=== PATIENT | female | born 1950 | race Caucasian/White ===

== ENCOUNTER 2020-10-11 11:14 | Emergency (ER) | payer MEDICARE, OTHER, SELFPAY ==
--- NOTE | ~2020-10-11 | CT_ITS ---
EXAMINATION: CT HEAD WITHOUT CONTRAST CLINICAL INFORMATION: Fall. On Coumadin. COMPARISON: CT brain 04/08/2018 TECHNIQUE: Contiguous axial imaging was performed from the skull base to vertex without intravenous administration of contrast. This CT examination was performed using dose optimization techniques as appropriate, variously including the following: *Automated exposure control *Adjustment of mA and/or kV according to patient size (this includes techniques or standardized protocols for targeted exams where dose is matched to indication/reason for exam; i.e. extremities or head) *Use of iterative reconstruction technique DLP: 678 mGy-cm FINDINGS: There is no evidence of acute intracranial hemorrhage or territorial infarction. No abnormal mass effect or midline shift is seen. Rizzo to white matter differentiation is well preserved. No extra-axial fluid collections are identified. The lateral ventricles are symmetrical but minimally prominent. There is mild prominence of cortical sulci. There is diffuse periventricular hypodensity suggestive of chronic small vessel ischemic changes. There is a prominent subarachnoid space in the right CP angle likely arachnoid cyst. It is similar to previous study. The osseous structures and soft tissues are normal. The mastoid air cells and visualized portions of the paranasal sinuses are well aerated. CT/CT head/brain wo con IMPRESSION: No acute intracranial intracranial process seen. Right anterior temporal lobe arachnoid cyst, stable.
--- NOTE | ~2020-10-11 | XR_ITS ---
EXAMINATION: XR LUMBOSACRAL SPINE CLINICAL INFORMATION: Fall COMPARISON: February 24, 2018 TECHNIQUE: Three views of the lumbosacral spine. FINDINGS: There are 5 nonrib bearing lumbar vertebra. No acute fracture, spondylolisthesis, spondylolysis identified. There appears be osteopenia of visualized bones. There is narrowing of the L5-S1 disc space as well as facet arthropathy at the L5-S1 level. IVC filter seen in place. Patient status post bilateral total hip arthroplasty. Suture line seen within the left upper quadrant. XR/XR lumbar spine 2-3V IMPRESSION: No acute fracture, spondylolisthesis, spondylolysis. L5-S1 degenerative change as described.
[2020-10-11 11:28] VITALS: BP 166/95; PULSE 78; RESP 16; TEMP 36.4; O2SAT 98; BMI 28.7
--- NOTE | 2020-10-11 11:44 | PC.NURSE ---
PT SITTING UPRIGHT IN BED, RR EVEN UNLABORED, SKIN WPD, AOX4. PT REPORTS HAVING MECHANICAL TRIP AND FALL YESTERDAY EVENING, PT REPORTS HAS BAD LEG S/P HIP REPLACEMENT, STEPPED IN ODD WAY ON LEG TRIPPED AND FELL BACKWARDS LANDING ON BUTTOCKS, THEN BACK OF HEAD STRUCK GROUND, NO LOC, PT ABLE TO GET SELF BACK UP RIGHT AWAY. PT REPORTS VERY MILD TENDERNESS TO BACK OF HEAD TODAY, STS HAS HAD SINUS HEADACHE SINCE YESTERDAY, UNKNOWN IF RELATED TO FALL OR NOT. PT REPORTS TAKES COUMADIN FOR PREVIOUS BLOOD CLOTS SO CAME TO ED WHEN TOLD TO D/T HEAD STRIKE. PT AWAITING PRIMARY PROVIDER EVAL.
--- NOTE | 2020-10-11 11:45 | ED.FALL ---
HPI - Fall General Chief Complaint: Fall Stated Complaint: FALL Time Seen by Provider: 10/11/20 11:44 History of Present Illness HPI Narrative: Patient tripped and fell yesterday and complains of a headache and back pain ,she has chronic pain and stiffness in her right leg since breaking her hip some months ago and uses a cane, She did not faint there was no preceding dizziness she had no loss of consciousness, she now has a mild headache and pain in her lower back, no numbness weakness or tingling, no changes to bowel or bladder Related Data Previous Rx's Medication Instructions Recorded cyclobenzaprine 5 mg PO TID PRN #10 tab 10/11/20 lidocaine 1 patch TOPICAL DAILY PRN #15 ea 10/11/20 Allergies Allergy/AdvReac Type Severity Reaction Status Date / Time aspirin [Aspirin] Allergy Unknown NOT Verified 10/11/20 11:28 APPLICABLE ibuprofen [From Motrin] Allergy Unknown NOT Verified 10/11/20 11:28 APPLICABLE Review of Systems Review of Systems: Positive for back pain and headache negatives are no dizziness no weakness no fainting no feeling faint no loss of consciousness no nausea or vomiting no vision changes no neck pain no numbness weakness or tingling no chest pain no shortness of breath no abdominal pain no lacerations no numbness or weakness PMFSH Past Medical History Source: nursing notes reviewed Medical History (Updated 10/12/20 @ 00:01 by Kamala Song) Pulmonary embolism Stomach ulcer Social History Social History Alcohol intake: never Smoking Status: Never smoker Use of substances other than those prescribed or required for medical reasons: No Advance Directives: No Advance Directives Information Provided: No Physical Exam Vital Signs: Vital Signs: Last Vital Signs Temp 98.4 F 10/11/20 13:18 Pulse 71 10/11/20 13:18 Resp 18 10/11/20 13:18 BP 149/82 H 10/11/20 13:18 Pulse Ox 97 10/11/20 13:18 Body Mass Index 28.7 General appearance is no acute distress, cooperative come and O x3 There is no hematoma or defect palpated in the scalp there is no Pinto sign there is no raccoon eyes there is no hemotympanum the pupils equal round reactive to light, extraocular motions are intact Neck is supple and nontender Chest is clear to auscultation symmetric equal breath sounds, no tenderness to ribs or chest wall Abdomen soft nontender There is tenderness and difficulty with movement in the right hip and leg which is pre-existing since a hip surgery some months ago, other extremities are normal Skin no lacerations Neuro motor is 5 5 x 4, sensation intact symmetrical there is no facial asymmetry, cerebellar exam is normal, cranial nerves 2-12 intact as tested, verbal comprehension and speaking are all normal Course Course Course Narrative: Back x-ray showed some arthritis no acute fracture and head CT showed a stable right temporal lobe arachnoid cyst but no acute bleed or fracture no acute findings Patient is discharged home to follow with primary doctor as needed MDM - Fall Lab Data Labs: Lab Results 10/11/20 Range/Units 12:17 PT 30.1 H (10.8-13.0) SEC INR 2.5 H (0.9-1.1) Discharge Plan Discharge Clinical Impression: Contusion of scalp, Back pain Patient Disposition: Home, Self-Care Additional Instructions: CT scan of head did not reveal any bleed or fracture INR was 2.5 X-ray of her back showed some arthritic changes but no broken bone For the back pain I added a muscle relaxer and a lidocaine patch Follow with primary doctor as physical therapy is sometimes helpful For headache pain you can use Tylenol Return any time any worse condition or any concerns Prescriptions: New cyclobenzaprine 5 mg tablet 5 mg PO TID PRN (Reason: muscle spasm) Qty: 10 RF: 0 lidocaine 5 % adhesive patch,medicated 1 patch topical DAILY PRN (Reason: back pain) Qty: 15 RF: 0 Interventions: ED Discharge Assessment Last Done: 10/11/20 13:58 Discharge Date/Time: 10/11/20 13:59
[2020-10-11 12:29] LABS: INTERNATIONAL NORM RATIO 2.5 (0.9-1.1); Prothrombin Time 30.1 SEC (10.8-13.0)
[2020-10-11 13:18] VITALS: BP 149/82; PULSE 71; RESP 18; TEMP 36.9; O2SAT 97
== END 2020-10-11 13:59 | disposition home or self-care (01) ==
PROVIDERS: Physician Assistant Medical; Emergency Provider Emergency Medicine; PCP Internal Medicine
DX: S00.03XA Contusion of scalp, initial encounter (principal); M54.5 Low back pain; M79.604 Pain in right leg; X58.XXXA Exposure to other specified factors, initial encounter; Y93.9 Activity, unspecified; Y92.9 Unspecified place or not applicable; Y99.9 Unspecified external cause status; Z79.899 Other long term (current) drug therapy
CPT/HCPCS: 36415; 70450; 72100; 85610; 99284

== ENCOUNTER 2021-06-19 11:28 | Emergency (ER) | payer MEDICARE, OTHER, SELFPAY ==
--- NOTE | ~2021-06-19 | XR_ITS ---
EXAMINATION: XR KNEE, RIGHT CLINICAL INFORMATION: Pain and swelling COMPARISON: Radiographs right knee 04/02/2009 TECHNIQUE: Four views of the right knee. FINDINGS: There is no fracture, dislocation, or destructive process. No visible suprapatellar effusion. Lateral view slightly obliqued and small effusion may not be appreciated. Hoffa's fat pad appears normal. There is no focal joint narrowing or erosive change or chondrocalcinosis. XR/XR knee RT 4V IMPRESSION: Unremarkable exam.
--- NOTE | ~2021-06-19 | US_ITS ---
EXAMINATION: US VENOUS ULTRASOUND WITH DOPPLER LOWER EXTREMITY, RIGHT CLINICAL INFORMATION: History DVT contralateral left lower extremity, 2009. Patient on anticoagulant. Pain lower extremity. Assess for occult DVT. COMPARISON: Bilateral leg venous ultrasound 01/08/2010 TECHNIQUE: Ultrasound of the deep veins is performed from the hip to the calf with compression sonography and color and pulse Doppler assessment. Spectral analysis with color-flow imaging is performed. FINDINGS: There is normal venous compression. The visualized common femoral vein, superficial femoral vein, profunda femoral vein, and the trifurcation region shows no evidence of deep venous thrombosis. There is echogenicity due to slow flow in the region of the popliteal vein due to Rouleaux formation as noted on cine loop. The popliteal vein is freely compressible without intraluminal clot. If the patient's symptoms persist, followup ultrasound in 5 days 7 days might be of value to exclude proximal propagation from a non-visualized calf vein. US/US venous duplex LE RT IMPRESSION: No DVT demonstrated in the right lower extremity.
[2021-06-19 12:13] VITALS: BP 164/76; PULSE 64; RESP 18; TEMP 35.8; O2SAT 97; BMI 29.0
--- NOTE | 2021-06-19 13:17 | ED.EXTPRO ---
HPI - Extremity Problem General Chief complaint: Extremity Problem Stated complaint: rt knee pain/swelling Time Seen by Provider: 06/19/21 12:01 Source: patient Mode of arrival: wheelchair Limitations: no limitations History of Present Illness HPI Narrative: 70-year-old female with a history of DVTs on Coumadin, arthritis here with complaints of right knee pain and swelling for 5 days. no known injury or trauma. no fevers, chills, redness or warmth. this morning she felt some numbness and tingling in her lower calf and became concerned that she might have a blood clot so brought herself in Related Data Previous Rx's Medication Instructions Recorded cyclobenzaprine 5 mg tablet 5 mg PO TID PRN #10 tab 10/11/20 lidocaine 5 % topical patch 1 patch TOPICAL DAILY PRN #15 ea 10/11/20 oxycodone-acetaminophen 5 mg-325 1 tab PO Q6H PRN #8 tab 06/19/21 mg tablet (Percocet) Allergies Allergy/AdvReac Type Severity Reaction Status Date / Time aspirin [Aspirin] Allergy Unknown NOT Verified 06/19/21 12:13 APPLICABLE ibuprofen [From Motrin] Allergy Unknown NOT Verified 06/19/21 12:13 APPLICABLE tramadol Allergy Seizure Verified 06/19/21 12:13 Review of Systems Review of Systems: Yes all other systems are reviewed and are negative Constitutional: Constitutional: Reports no additional constitutional complaints, Denies body ache(s), Denies chills, Denies fever(s), Denies headache(s) and Denies weakness Eyes: Eyes: Reports no additional eye complaints and Denies change in vision ENT: Reports system reviewed and no additional complaints, except as documented, Denies dizziness, Denies headache(s), Denies nasal congestion, Denies nasal discharge and Denies neck pain Cardiovascular: Cardiovascular: Reports no additional cardiovascular complaints, Denies chest pain, Denies leg edema and Denies dyspnea Respiratory: Respiratory: Reports no additional respiratory complaints, Denies cough and Denies dyspnea Gastrointestinal: Gastrointestinal: Reports no additional gastrointestinal complaints, Denies abdominal pain, Denies diarrhea, Denies nausea and Denies vomiting Genitourinary: Genitourinary: Reports no additional female genitourinary complaints and Denies urinary incontinence Musculoskeletal: Musculoskeletal: Reports no additional musculoskeletal complaints, Denies back pain, Reports arthralgias, Reports joint swelling, Denies neck pain, Denies numbness and Denies tingling Integumentary/Breasts: Skin/Breast: Reports system reviewed and no additional complaints, except as docu and Denies rash Neurologic: Reports system reviewed and no additional complaints, except as documented, Denies Abnormal speech present, Denies dizziness, Denies headache(s), Denies numbness, Denies tingling and Denies weakness PMFSH Past Medical History Attestation statement: The following information was validated with the patient. Source: old records reviewed and nursing notes reviewed Medical History Pulmonary embolism Stomach ulcer Social History Social History Alcohol intake: never Advance Directives: No Physical Exam Vital Signs: Vital Signs: Last Vital Signs Temp 96.4 F L 06/19/21 12:13 Pulse 64 06/19/21 12:13 Resp 18 06/19/21 12:13 BP 164/76 H 06/19/21 12:13 Pulse Ox 97 06/19/21 12:13 Body Mass Index 29.0 Const: General: cooperative, healthy appearing, comfortable and no acute distress Orientation/consciousness: patient oriented x3 Limitations: no limitations HENMT: Head: Yes normal to inspection Ears: hearing grossly normal bilaterally General nose exam: Normal external nose present Face and sinus: Yes normal facial exam Mouth: Normal oral and palatal mucosa present Throat: Yes posterior oropharynx normal Eyes: General: appearance normal, both eyes and all related structures Pupils: Equal, round and reactive pupils present Neck: Neck: Yes normal visual inspection Chest: Chest palpation & inspection: normal inspection of the chest Resp: Effort & Inspection: normal respiratory effort Auscultation: clear to auscultation bilaterally Cardio: Rate: regular rate Rhythm: regular rhythm Peripheral pulses: Peripheral pulses 2+ throughout GI: Inspection: Yes normal to inspection Palpation (GI): Soft to palpation and nontender Auscultation: normal bowel sounds Back/Spine/Pelvis: Thoracic/Lumbar Spine: thoracic and lumbar spine normal to inspection Skin: General skin exam: no rashes or lesions noted Neuro: General: patient oriented x3, no focal motor deficits and normal sensation to monofilament Cranial nerves: Yes Equal, round and reactive pupils present Cognition (Neuro): normal cognition Speech: No Abnormal speech present Gait exam (Neuro): Normal gait present Motor exam (neuro): 5/5 motor strength present throughout Extrem: Other: tenderness to the anterior knee and along the medial and lateral aspects with some mild swelling and a small joint effusion. No warmth or redness. The patient is able to flex and extend the knee independently although has some pain with flexion. There is no calf tenderness on exam. No posterior knee pain. She reports some sensation changes to the lower extremity but sensation is intact on exam. Palpable distal pulses. General: Yes normal to inspection, Yes no pedal edema and Yes no calf tenderness Course Course Course Narrative: Atraumatic right knee pain for several days now with some sensation change the lower extremity. Will check x-rays of the knee. patient is on Coumadin for history of DVTs and tells me she has been compliant. Her last INR on Tuesday was 1.8 so it appears she is mildly subtherapeutic. Will check her INR today an ultrasound of the lower extremity to rule out DVT. 1540- Ultrasound is negative for DVT. X-ray shows some arthritic changes otherwise unremarkable. It was difficult to obtain the patient's INR and so the decision was made to hold on checking her INR and she can follow up outpatient with her regular check. Patient has both a walker and a cane at home. Recommend she follow-up with orthopedics outpatient. Reviewed worrisome signs and symptoms and when to return to the emergency department. Comfortable discharge home. MDM - Extremity (Nontraumatic) Medical Records Attestation: I reviewed the patient's medical records. Lab Data Attestation: I reviewed the patient's lab results. Imaging Data knee xray: Attestation: I personally reviewed and interpreted this imaging study as follows: Radiologist's impression: [address] [address] XRay Report Signed Patient: Shantal Mays MR#: [id number] : 1950 Acct:[id number] Age/Sex: 70 / F ADM Date: 06/19/21 Loc: .ED Attending Dr: Ordering Physician: Inga Richter NP Date of Service: 06/19/21 Procedure(s): XR knee RT 4V Accession Number(s): [id number] cc: Inga Richter [employer]~ EXAMINATION: XR KNEE, RIGHT? CLINICAL INFORMATION: Pain and swelling? COMPARISON: Radiographs right knee 04/02/2009? TECHNIQUE: Four views of the right knee. FINDINGS: There is no fracture, dislocation, or destructive process. No visible suprapatellar effusion. Lateral view slightly obliqued and small effusion may not be appreciated. Hoffa's fat pad appears normal. There is no focal joint narrowing or erosive change or chondrocalcinosis.? XR/XR knee RT 4V IMPRESSION: Unremarkable exam. Discharge Plan Discharge Clinical Impression: Osteoarthritis Patient Disposition: Home, Self-Care Instructions: Osteoarthritis (ED) Additional Instructions: ultrasound showed no blood clot follow-up with either your Orthopedics or you may call our orthopedic team ice, rest, elevation limit weight-bearing with either a cane or walker at home Prescriptions: New oxycodone-acetaminophen [Percocet] 5-325 mg tablet 1 tab PO Q6H PRN (Reason: pain) Qty: 8 RF: 0 No Action cyclobenzaprine 5 mg tablet 5 mg PO TID PRN (Reason: muscle spasm) Qty: 10 RF: 0 lidocaine 5 % adhesive patch,medicated 1 patch topical DAILY PRN (Reason: back pain) Qty: 15 RF: 0 Referrals: Naseem Coto MD [Physician] - 2 days Interventions: ED Discharge Assessment Last Done: 06/19/21 15:45 Discharge Date/Time: 06/19/21 16:05
[2021-06-19] MEDS: Acetaminophen 325 MG TABLET 650 MG PO (15:09)
[2021-06-19] MEDS: oxyCODONE HCl Immed Release 5 MG TABLET PO (15:10)
== END 2021-06-19 16:05 | disposition home or self-care (01) ==
PROVIDERS: Emergency Provider Emergency Medicine; PCP Internal Medicine
DX: M17.11 Unilateral primary osteoarthritis, right knee (principal); M25.561 Pain in right knee; M25.461 Effusion, right knee; Z86.718 Personal history of other venous thrombosis and embolism; Z79.01 Long term (current) use of anticoagulants
CPT/HCPCS: 73564; 93971; 99284

== ENCOUNTER 2021-12-25 17:04 | Emergency (ER) | payer MEDICARE, OTHER, SELFPAY ==
[2021-12-25 17:48] VITALS: BP 152/84; PULSE 76; RESP 16; TEMP 36.7; O2SAT 97; BMI 29.0
[2021-12-25 18:00] LABS: MANUAL DIFF FLAG NO
[2021-12-25 18:05] LABS: INTERNATIONAL NORM RATIO 2.5 (0.9-1.1); Prothrombin Time 28.4 SEC (9.9-13.0)
[2021-12-25 18:08] LABS: Partial Thromboplastin Time 45.3 SEC (24.1-38.0)
[2021-12-25 18:22] LABS: Alanine Aminotransferase 22 U/L (0-31); Albumin Level 3.9 g/dL (3.5-5.0); Alkaline Phosphatase 80 U/L (39-117); Anion Gap 17 (12-20); Aspartate Amino Transferase 31 U/L (5-31); Bilirubin Total 0.7 mg/dL (0.0-1.0); Blood Urea Nitrogen 22 mg/dL (9-16); Calcium 8.8 mg/dL (8.4-10.2); Carbon Dioxide 22 mmol/L (22-29); Chloride 105 mmol/L (96-108); Creatinine Clr Calc Pharmacy 42.9; Estimated Glomerular Filt Rate 53; Glucose Random 94 mg/dL (60-115); Potassium 4.6 mmol/L (3.3-5.1); Sodium 139 mmol/L (135-145); Total Protein 7.2 g/dL (6.5-8.0)
[2021-12-25 18:24] LABS: Basophils Percent Auto 0.3 % (0-2); Eosinophils Absolute Auto 0.4 X10*3/uL (0.0-0.4); Eosinophils Percent Auto 3.2 % (0-4); Hematocrit 34.8 % (37.0-47.0); Hemoglobin 10.8 g/dl (12.0-16.0); Imm Gran Abs Auto 0.05 X10*3/uL (0.00-0.03); Imm Gran Pct Auto 0.4 % (0.0-0.4); Lymphocytes Absolute Auto 2.2 X10*3/uL (1.2-4.9); Lymphocytes Percent Auto 19.1 % (20-40); Mean Corpuscular Hemoglobin 31.8 pg (27.0-33.0); Mean Corpuscular Volume 102.4 fL (80.0-98.0); Mean Platelet Volume 9.8 fL (9.4-12.3); Monocytes Absolute Auto 0.8 X10*3/uL (0.1-1.2); Monocytes Percent Auto 6.7 % (2-11); Neutrophils Absolute Auto 8.1 x10*3/uL (2.0-8.3); Neutrophils Percent Auto 70.3 % (45-73); Platelet Count 351 X10*3/uL (160-400); White Blood Count 11.5 X10*3/uL (4.8-10.8)
--- NOTE | 2021-12-25 19:39 | ED.GENADULT ---
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 She reports she has various bruises on her left thigh, left knee and left lower extremity. She denies any recollection of any trauma. She denies accidentally being anything at home, even minor trauma. She denies any lightheadedness this, dizziness, chest pain, shortness of breath. She is closely followed by [facility] and has an appointment them next week. She has full range of motion of the left hip, pain with flexion of the left knee. She reports pain in the thigh and knee when ambulating and putting pressure on her left foot. MD complaint: spontaneous bruising and pain in LLE Onset (ago): week(s) Location: left and lower extremity Radiation: non-radiation Severity: moderate Severity scale (1-10): 6 Quality: aching Pain Consistency: intermittent Relieving factors: immobilization and rest Exacerbating factors: movement Associated symptoms: denies other symptoms Treatments prior to arrival: none Related Data Previous Rx's Medication Instructions Recorded cyclobenzaprine 5 mg tablet 5 mg PO TID PRN #10 tab 10/11/20 lidocaine 5 % topical patch 1 patch TOPICAL DAILY PRN #15 ea 10/11/20 oxycodone-acetaminophen 5 mg-325 1 tab PO Q6H PRN #8 tab 06/19/21 mg tablet (Percocet) oxycodone-acetaminophen 5 mg-325 1 tab PO TID PRN #5 tab 12/25/21 mg tablet Allergies Allergy/AdvReac Type Severity Reaction Status Date / Time aspirin [Aspirin] Allergy Unknown NOT Verified 06/19/21 12:13 APPLICABLE ibuprofen [From Motrin] Allergy Unknown NOT Verified 06/19/21 12:13 APPLICABLE tramadol Allergy Seizure Verified 06/19/21 12:13 Review of Systems Review of Systems: Constitutional: No Fever, No Chills ENT/Mouth: No sore throat, No Rhinorrhea Cardiovascular: No Chest Pain, No SOB Gastrointestinal: No Nausea, No Vomiting, No Diarrhea, No abdominal Pain, No Hematochezia, No Melena Genitourinary: No Hematuria Musculoskeletal: + joint pain, + Myalgias Skin: No Skin Lesions, No rash Neuro: No Weakness, No Numbness, No Dizziness, No Headache Psych: No Anxiety/Panic, No Depression Heme/Lymph: + Bruising, No Lymphadenopathy Endocrine: No Polyuria, No Polydipsia [facility] Past Medical History Medical History Pulmonary embolism Stomach ulcer Social History Social History Alcohol intake: never Patient Tobacco Use Status: Never used Tobacco Smoked in Last 30 Days: No Use of substances other than those prescribed or required for medical reasons: No Advance Directives: No Advance Directives Information Provided: No Physical Exam ED Vital Signs: Vital Signs - 24 hr 12/25/21 17:48 Temperature 98.0 F Pulse Rate 76 Respiratory Rate 16 Blood Pressure 152/84 H Pulse Oximetry 97 BMI result Body Mass Index 29.0 Appearance: Alert. Oriented X3. No acute distress. HEENT: normal inspection CVS: Normal heart rate and rhythm. Pulses normal. Respiratory: No respiratory distress. Skin: Skin warm and dry. Normal skin color. Normal skin turgor. No rashes. Extremities: Left lower extremity with multiple ecchymotic areas in various stages of he healing. On the left lateral thigh there is a large ecchymotic area with palpable underlying hematoma, approximately 6 cm around. Compartment is soft and compressible. Left knee has mild generalized swelling with several small ecchymotic areas, some purple, some yellow, some blue. There is also a moderate sized ecchymotic area in the anterior left renteria. All compartments in the left lower extremity are soft and compressible. Good distal pulses. Ambulates with a slight limp. She has normal passive range of motion of the left hip. Pain with flexion of the knee past 90 degrees. Neuro: Oriented X 3. No motor deficit. No sensory deficit. Course Course Course Narrative: 71-year-old female with history of recurrent DVTs on Coumadin, history of PE, osteoarthritis, status post left hip replacement presents to the ER with spontaneous bruising of her left lower extremity. She denies any recollection of any trauma even minor trauma. On examination she has multiple bruises to the left lower extremity, in various stages of healing. The lateral left thigh with a palpable hematoma. Compartments are soft and compressible. It is not tense or seem to be actively bleeding. Her H&H is 10 and 34. Her prior hemoglobins have ranged anywhere from 8-14. We have no recent blood work on her. Her INR is 2.5 today. She reports this is on the ?higher side? for her. She is hemodynamically stable. Low suspicion of active extravasation of the hematoma given lack of new trauma and physical examination. She has an appointment with her orthopedist next week. Will place the left thigh in a compressive Fabian wrap. Few doses of oxycodone ordered for pain control. She is stable for discharge home with close outpatient follow-up of her CBC and INR. Advised to come back to the ER if the pain or bruising were to get worse. Medical Decision Making Lab Data Result diagrams: 12/25/21 17:53 12/25/21 17:53 Labs: Lab Results 12/25/21 12/25/21 12/25/21 Range/Units 17:53 17:53 17:53 WBC 11.5 H (4.8-10.8) X10*3/uL RBC 3.40 L (4.20-5.50) X10*6/uL Hgb 10.8 L (12.0-16.0) g/dl Hct 34.8 L (37.0-47.0) % MCV 102.4 H (80.0-98.0) fL MCH 31.8 (27.0-33.0) pg MCHC 31.0 (31.0-35.0) g/dl RDW 14.0 (11.0-16.0) % Plt Count 351 (160-400) X10*3/uL MPV 9.8 (9.4-12.3) fL Immature Gran % (Auto) 0.4 (0.0-0.4) % Neut % (Auto) 70.3 (45-73) % Lymph % (Auto) 19.1 L (20-40) % [place] % (Auto) 6.7 (2-11) % Eos % (Auto) 3.2 (0-4) % Baso % (Auto) 0.3 (0-2) % Lymph # (Auto) 2.2 (1.2-4.9) X10*3/uL [place] # (Auto) 0.8 (0.1-1.2) X10*3/uL Eos # (Auto) 0.4 (0.0-0.4) X10*3/uL Baso # (Auto) 0.0 (0.0-0.2) X10*3/uL Abs Immat Gran (auto) 0.05 H (0.00-0.03) X10*3/uL Absolute Neuts (auto) 8.1 (2.0-8.3) x10*3/uL Absolute Nucleated RBC 0.000 (0.0-0.012) X10*3/uL Nucleated RBC % (auto) 0.0 (0.0-0.2) /100WBC PT 28.4 H (9.9-13.0) SEC INR 2.5 H (0.9-1.1) APTT 45.3 H (24.1-38.0) SEC Sodium 139 (135-145) mmol/L Potassium 4.6 (3.3-5.1) mmol/L Chloride 105 (96-108) mmol/L Carbon Dioxide 22 (22-29) mmol/L Anion Gap 17 (12-20) BUN 22 H (9-16) mg/dL Creatinine 1.03 (0.5-1.4) mg/dL Estim Creat Clear Calc 42.9 Estimated GFR 53 Random Glucose 94 (60-115) mg/dL Calcium 8.8 (8.4-10.2) mg/dL Total Bilirubin 0.7 (0.0-1.0) mg/dL AST 31 (5-31) U/L ALT 22 (0-31) U/L Alkaline Phosphatase 80 (39-117) U/L Total Protein 7.2 (6.5-8.0) g/dL Albumin 3.9 (3.5-5.0) g/dL Critical Care Time Critical Care Time Critical Care Time: No Discharge Plan Discharge Clinical Impression: Hematoma of left thigh Patient Disposition: Home, Self-Care Instructions: Hematoma (ED) Additional Instructions: Recommend wearing the FABIAN wrap for compression to the hematoma of the left thigh. Elevate your leg whenever possible. Follow up with your doctor next week as scheduled. Prescriptions: New oxycodone-acetaminophen 5-325 mg tablet 1 tab PO TID PRN (Reason: severe pain (scale score 7-10)) Qty: 5 0RF No Action cyclobenzaprine 5 mg tablet 5 mg PO TID PRN (Reason: muscle spasm) Qty: 10 0RF Rx Instructions: This medication may cause drowsiness or dizziness so use with caution lidocaine 5 % adhesive patch,medicated 1 patch topical DAILY PRN (Reason: back pain) Qty: 15 0RF Rx Instructions: leave on most painful area for up to 12 hrs oxycodone-acetaminophen [Percocet] 5-325 mg tablet 1 tab PO Q6H PRN (Reason: pain) Qty: 8 0RF Referrals: Ankita Rolon MD [Primary Care Provider] - (spontaneous LLE ecchymosis, rec monitoring CBC and INR)
[2021-12-25] MEDS: HYDROcodone Bit/Acetam 5/325 TABLET 1 TAB PO (20:40)
== END 2021-12-25 20:42 | disposition home or self-care (01) ==
LOC: HO.ED 20:14
PROVIDERS: Emergency Provider Internal Medicine; PCP Internal Medicine
DX: S70.02XA Contusion of left hip, initial encounter (principal); Z86.718 Personal history of other venous thrombosis and embolism; Z79.01 Long term (current) use of anticoagulants; Z86.711 Personal history of pulmonary embolism; Z96.642 Presence of left artificial hip joint; X58.XXXA Exposure to other specified factors, initial encounter; Y93.9 Activity, unspecified; Y92.9 Unspecified place or not applicable; Y99.9 Unspecified external cause status
CPT/HCPCS: 36415; 80053; 85025; 85610; 85730; 99283; 99284

== ENCOUNTER 2023-02-26 14:00 | Emergency (ER) | payer MEDICARE, OTHER, SELFPAY ==
[2023-02-26 14:04] VITALS: BP 155/92; PULSE 79; RESP 18; TEMP 36; O2SAT 98; BMI 30.9
--- NOTE | 2023-02-26 14:04 | ED.GENADULT ---
HPI - General Adult General Chief complaint: General Medical Stated complaint: nausea rash cold sweats Time Seen by Provider: 02/26/23 21:14 Source: patient, family and old records reviewed Mode of arrival: ambulatory Limitations: no limitations History of Present Illness complaint: rash Onset (ago): week(s) (2) Location: left, upper extremity and lower extremity Radiation: non-radiation Severity: mild Quality: other (pruritic) Relieving factors: none Exacerbating factors: none Associated symptoms: other (in waiting got a headache typical for her with nausea and chronic abdominal pain felt some chills - but feels fine now just needs some oxycodone for pain) Treatments prior to arrival: other (topical bendaryl) Related Data Previous Rx's Medication Instructions Recorded cyclobenzaprine 5 mg tablet 5 mg PO TID PRN muscle spasm #10 10/11/20 tabs lidocaine 5 % topical patch 1 patch topical DAILY PRN back 10/11/20 pain #15 ea oxycodone-acetaminophen 5 mg-325 1 tab PO Q6H PRN pain #8 tabs 06/19/21 mg tablet (Percocet) oxycodone-acetaminophen 5 mg-325 1 tab PO TID PRN severe pain 12/25/ mg tablet (scale score 7-10) #5 tabs clotrimazole-betamethasone 1 1 appl topical BID 10 days #45 02/26/23 %-0.05 % topical cream grams Allergies Allergy/AdvReac Type Severity Reaction Status Date / Time aspirin [Aspirin] Allergy Unknown NOT Verified 02/26/23 14:13 APPLICABLE ibuprofen [From Motrin] Allergy Unknown NOT Verified 02/26/23 14:13 APPLICABLE tramadol Allergy Seizure Verified 02/26/23 14:13 Review of Systems Review of Systems: Constitutional : No Fever, pos Chills, Cardiovascular : No Chest Pain, No SOB Respiratory : No Dyspnea Gastrointestinal : pos abdominal pain, pos nausea, no vomiting, no diarrhea Musculoskeletal : No Joint Swelling, no joint pain Skin : No rash, positive skin rash Neuro : No Weakness, pos headache, no numbness PMFSH Past Medical History Medical History Pulmonary embolism Stomach ulcer Social History Social History Alcohol intake: never Patient Tobacco Use Status: Never used Tobacco Advance Directives: Yes Advance Directives Information Provided: No Advance Directives on File: No Physical Exam ED Vital Signs: Vital Signs - 24 hr 02/26/23 14:04 02/26/23 16:29 02/26/23 18:34 Temperature 96.8 F 98.2 F 96.8 F Pulse Rate 79 67 78 Respiratory Rate 18 20 18 Blood Pressure 155/92 H 154/79 H 171/99 H Pulse Oximetry 98 96 96 Oxygen Delivery Method Room Air Room Air Room Air BMI result Body Mass Index 30.9 Appearance: Alert. Oriented X3. No acute distress. Eyes: Pupils equal, round and reactive to light. ENT: Pharynx normal. Neck: Normal inspection. Neck supple. CVS: Normal heart rate and rhythm. Pulses normal. Respiratory: No respiratory distress. Breath sounds normal. Abdomen: Soft and nontender. no distention Skin: Skin warm and dry. Normal skin color. Normal skin turgor. Extremities: No lower extremity edema. scaling pruritic rash noted on L anterior renteria softball size no signs of erythema edema or purulence there is scaling patch red ring around it like tinea, scaling patches on left dorsum of hand Neuro: Oriented X 3. No motor deficit. No sensory deficit. Course Course Course Narrative: This is an RME: Additional HPI, ROS, PE not included below will be deferred to primary provider. Patient is a 72-year-old female who presents emergency department for evaluation of an intensly pruritic rash to LLE x 2 weeks, unrelieved with topical diphenhydramine. 4 days ago noted rash extending to hands and arm. Today becan with nausea, stomach like its on fire , cold sweats, tactile fever. Took zofran at home wthout improvement. Plan: labs, U/A, placed in [facility] pending bed availability Medical Decision Making Medical Decision Making MDM Narrative: 72 yo female hx of chronic abdominal pain due to prior surgeries from bleeding ulcers and chronic nausea, renal colic, chronic migraines who comes in with c/o headache from waiting room feeling chills and rash to left leg and left hand that is itchy no known exposures no response to topical benadryl no tick bites - her rash is more red raised and scaling at margins it appears like a tinea but could just be irritated - will use combined steroid and clotrimazole - her nausea and abdominal pain is chronic she declines imaging due to waiting times and exam is benign, headaches are chronic GCS 15 takes percocet at home she is asking for this at home and wants to leave. Differential Diagnosis Differential Diagnoses: The differential diagnosis associated with the presentation includes rash, dermatitis, fungal, tinea Lab Data MDM Lab Attestation statement: I reviewed the patient's lab results. 02/26/23 15:17 02/26/23 15:17 Labs: Lab Results 02/26/23 02/26/23 Range/Units 15:17 15:17 WBC 8.7 (4.8-10.8) X10*3/uL RBC 4.16 L D (4.20-5.50) X10*6/uL Hgb 12.7 (12.0-16.0) g/dl Hct 39.4 (37.0-47.0) % MCV 94.7 (80.0-98.0) fL MCH 30.5 (27.0-33.0) pg MCHC 32.2 (31.0-35.0) g/dl RDW 13.2 (11.0-16.0) % Plt Count 258 D (160-400) X10*3/uL MPV 9.4 (9.4-12.3) fL Immature Gran % (Auto) 0.3 (0.0-0.4) % Neut % (Auto) 81.2 H (45-73) % Lymph % (Auto) 13.1 L (20-40) % [place] % (Auto) 3.7 (2-11) % Eos % (Auto) 1.5 (0-4) % Baso % (Auto) 0.2 (0-2) % Lymph # (Auto) 1.1 L (1.2-4.9) X10*3/uL [place] # (Auto) 0.3 (0.1-1.2) X10*3/uL Eos # (Auto) 0.1 (0.0-0.4) X10*3/uL Baso # (Auto) 0.0 (0.0-0.2) X10*3/uL Abs Immat Gran (auto) 0.03 (0.00-0.03) X10*3/uL Absolute Neuts (auto) 7.1 (2.0-8.3) x10*3/uL Absolute Nucleated RBC 0.000 (0.0-0.012) X10*3/uL Nucleated RBC % (auto) 0.0 (0.0-0.2) /100WBC Sodium 140 (135-145) mmol/L Potassium 4.8 (3.3-5.1) mmol/L Chloride 107 (96-108) mmol/L Carbon Dioxide 23 (22-29) mmol/L Anion Gap 15 (12-20) BUN 17 H (9-16) mg/dL Creatinine 0.84 (0.5-1.4) mg/dL Estim Creat Clear Calc 53.5 Estimated GFR > 60 Random Glucose 96 (60-115) mg/dL Calcium 9.6 D (8.4-10.2) mg/dL Total Bilirubin 0.3 (0.0-1.0) mg/dL AST 18 (5-31) U/L ALT 16 (0-31) U/L Alkaline Phosphatase 83 (39-117) U/L Total Protein 7.6 (6.5-8.0) g/dL Albumin 4.1 (3.5-5.0) g/dL Lipase 27 (8-78) U/L Independent Historian Clinical information obtained from an independent historian. History obtained from or confirmed by: Spouse External Record Review External record reviewed: Office record Tests considered The following testing was considered but not selected: CT abdomen but patient deferred Prescription Management I considered prescription management with: Other (topical therapy) Discharge Plan Discharge Clinical Impression: Rash and nonspecific skin eruption Acute tension headache Qualifiers: Intractability: not intractable Qualified Code(s): G44.209 - Tension-type headache, unspecified, not intractable Patient Disposition: Home, Self-Care Instructions: Acute Headache (ED), Acute Rash (ED) Additional Instructions: return for fevers, worsening pain, persistent vomiting, inability to eat or drink, unable to urinate or have bowel movement, distention of stomach, increased redness, swelling of rash. Prescriptions: New clotrimazole-betamethasone 1-0.05 % cream 1 appl topical BID 10 Days Qty: 45 0RF No Action cyclobenzaprine 5 mg tablet 5 mg PO TID PRN (Reason: muscle spasm) Qty: 10 0RF Rx Instructions: This medication may cause drowsiness or dizziness so use with caution lidocaine 5 % adhesive patch,medicated 1 patch topical DAILY PRN (Reason: back pain) Qty: 15 0RF Rx Instructions: leave on most painful area for up to 12 hrs oxycodone-acetaminophen 5-325 mg tablet 1 tab PO TID PRN (Reason: severe pain (scale score 7-10)) Qty: 5 0RF oxycodone-acetaminophen [Percocet] 5-325 mg tablet 1 tab PO Q6H PRN (Reason: pain) Qty: 8 0RF
[2023-02-26 15:23] LABS: MANUAL DIFF FLAG NO
[2023-02-26 15:25] LABS: Basophils Percent Auto 0.2 % (0-2); Eosinophils Absolute Auto 0.1 X10*3/uL (0.0-0.4); Eosinophils Percent Auto 1.5 % (0-4); Hematocrit 39.4 % (37.0-47.0); Hemoglobin 12.7 g/dl (12.0-16.0); Imm Gran Abs Auto 0.03 X10*3/uL (0.00-0.03); Imm Gran Pct Auto 0.3 % (0.0-0.4); Lymphocytes Absolute Auto 1.1 X10*3/uL (1.2-4.9); Lymphocytes Percent Auto 13.1 % (20-40); Mean Corpuscular HGB Conc 32.2 g/dl (31.0-35.0); Mean Corpuscular Hemoglobin 30.5 pg (27.0-33.0); Mean Corpuscular Volume 94.7 fL (80.0-98.0); Mean Platelet Volume 9.4 fL (9.4-12.3); Monocytes Absolute Auto 0.3 X10*3/uL (0.1-1.2); Monocytes Percent Auto 3.7 % (2-11); Neutrophils Absolute Auto 7.1 x10*3/uL (2.0-8.3); Neutrophils Percent Auto 81.2 % (45-73); Platelet Count 258 X10*3/uL (160-400); Red Blood Count 4.16 X10*6/uL (4.20-5.50); Red Cell Distribution Width 13.2 % (11.0-16.0); White Blood Count 8.7 X10*3/uL (4.8-10.8)
[2023-02-26 15:42] LABS: Alanine Aminotransferase 16 U/L (0-31); Albumin Level 4.1 g/dL (3.5-5.0); Alkaline Phosphatase 83 U/L (39-117); Anion Gap 15 (12-20); Aspartate Amino Transferase 18 U/L (5-31); Bilirubin Total 0.3 mg/dL (0.0-1.0); Blood Urea Nitrogen 17 mg/dL (9-16); Calcium 9.6 mg/dL (8.4-10.2); Carbon Dioxide 23 mmol/L (22-29); Chloride 107 mmol/L (96-108); Creatinine Clr Calc Pharmacy 53.5; Estimated Glomerular Filt Rate > 60; Glucose Random 96 mg/dL (60-115); Lipase 27 U/L (8-78); Potassium 4.8 mmol/L (3.3-5.1); Sodium 140 mmol/L (135-145); Total Protein 7.6 g/dL (6.5-8.0)
[2023-02-26 16:29] VITALS: BP 154/79; PULSE 67; RESP 20; TEMP 36.8; O2SAT 96
[2023-02-26 18:34] VITALS: BP 171/99; PULSE 78; RESP 18; TEMP 36; O2SAT 96
[2023-02-26 21:23] VITALS: BP 163/83; PULSE 68; RESP 18; TEMP 26.6; O2SAT 100
[2023-02-26 21:27] LABS: Appearance Urine Clear; Color Urine Yellow; Glucose Urine UA Negative (Negative); Leukocyte Esterase Urine Negative (Negative); Nitrite Urine Negative (Negative); PH 6.5 (5.0-9.0); Urine Blood Negative (Negative); Urine Ketones Trace mg/dL (Negative); Urine Protein Negative (Neg-Trace)
[2023-02-26] MEDS: Acetaminophen 325 MG TABLET PO (21:28)
[2023-02-26] MEDS: oxyCODONE HCl Immed Release 5 MG TABLET PO (21:28)
[2023-02-28 21:34] LABS: Lyme Abs Screen <0.90 index
[2023-02-28 23:17] LABS: A. Phagocytphilium DNA,RT-PCR NOT DETECTED (NOT DETECTED); Babesia Microti DNA, RT-PCR NOT DETECTED (NOT DETECTED); Borrelia Miyamotoi,DNA RT-PCR NOT DETECTED (NOT DETECTED); E.Chaffeensis DNA RT-PCR NOT DETECTED (NOT DETECTED); Lyme(Borrelia ssp)DNA RT-PCR NOT DETECTED (NOT DETECTED)
== END 2023-02-26 21:34 | disposition home or self-care (01) ==
PROVIDERS: Nurse Practitioner Family; Emergency Provider Emergency Medicine; PCP Internal Medicine
DX: R21 Rash and other nonspecific skin eruption (principal); G44.209 Tension-type headache, unspecified, not intractable; R10.9 Unspecified abdominal pain; K25.9 Gastric ulcer, unspecified as acute or chronic, without hemorrhage or perforation; Z86.711 Personal history of pulmonary embolism; Z79.899 Other long term (current) drug therapy
CPT/HCPCS: 36415; 80053; 81003; 83690; 85025; 86617; 86618; 87798; 87801; 99283; 99284

== ENCOUNTER 2023-02-28 10:56 | Emergency (ER) | payer MEDICARE, OTHER, SELFPAY ==
--- NOTE | ~2023-02-28 | CT_ITS ---
EXAMINATION: CT ABDOMEN AND PELVIS WITH CONTRAST CLINICAL INFORMATION: Right lower quadrant pain COMPARISON: Previous CT of the abdomen and pelvis July 2022 TECHNIQUE: Multidetector volumetric images were obtained from the superior aspect of the liver through the pubic symphysis following administration 85 mL of Omnipaque 350 intravenous contrast. Sagittal and coronal reformatted images were obtained on the technologist's workstation. Oral contrast: Yes This CT examination was performed using dose optimization techniques as appropriate, variously including the following: *Automated exposure control *Adjustment of mA and/or kV according to patient size (this includes techniques or standardized protocols for targeted exams where dose is matched to indication/reason for exam; i.e. extremities or head) *Use of iterative reconstruction technique DLP: 671 mGy-cm FINDINGS: LUNG BASES: Chronic scarring or subsegmental atelectasis at the right lung base similar to previous exams. LIVER, GALLBLADDER, AND BILIARY TREE: Mild cirrhotic changes of the liver. There is a 1.1 x 1.6 cm low-attenuation lesion in the right lobe of the liver axial image 31 series 6. This is decreased in size from previous contrast-enhanced CT scan August 11 when this measured 1.9 x 2.3 cm. This demonstrated peripheral puddling enhancement on July 2017 exam and lesion probably represents a benign hemangioma. There is a 5 mm cyst in the right lobe of the liver that is stable. No other focal liver lesion. The gallbladder has been removed. There is no intrahepatic biliary duct dilatation. The common bile duct is dilated measuring up to 1.9 cm. This is similar to 2018 CT scan as well. PANCREAS: Unremarkable. SPLEEN: Unremarkable. ADRENAL GLANDS: Unremarkable. KIDNEYS AND URETERS: Small left kidney with areas of renal cortical thinning or scarring. A small 3 mm stone in the upper pole the left kidney. Bilateral renal cysts. No imaging follow-up recommended. BLADDER: Not well evaluated due to artifact from bilateral hip replacements. GASTROINTESTINAL TRACT: Not well evaluated due to artifact from bilateral hip replacements. Diverticulosis of the colon. The appendix is not identified. No inflammatory changes in the right lower quadrant. Postsurgical changes from gastric bypass. ABDOMINAL WALL: Small midline ventral hernias containing fat. LYMPH NODES: Normal. VASCULAR: IVC filter unchanged from previous exams. Normal caliber abdominal aorta. PELVIC VISCERA: Not well-visualized due to artifact from bilateral hip replacements. OSSEOUS STRUCTURES: Degenerative disc disease at L5-S1. Stable 1 cm lucent lesion in the L2 vertebral body 0.2 old exams and therefore probably benign. Bilateral hip replacements. CT/CT abdomen pelvis w IV con IMPRESSION: Appendix not seen. No inflammatory changes in the right lower quadrant. Diverticulosis. No evidence of diverticulitis. Limited evaluation of the pelvis due to artifact from bilateral hip replacements. Small nonobstructing left renal stone. Small left kidney with areas of renal cortical thinning or scarring. Cirrhotic changes of the liver. Stable liver lesions. Post cholecystectomy. Stable common bile duct dilatation. Fleischner guidelines were followed.
--- NOTE | ~2023-02-28 | CT_ITS ---
EXAMINATION: CT HEAD WITHOUT CONTRAST CLINICAL INFORMATION: Pain. COMPARISON: CT head 10/11/2020. TECHNIQUE: Contiguous axial imaging was performed from the skull base to vertex without intravenous administration of contrast. This CT examination was performed using dose optimization techniques as appropriate, variously including the following: *Automated exposure control *Adjustment of mA and/or kV according to patient size (this includes techniques or standardized protocols for targeted exams where dose is matched to indication/reason for exam; i.e. extremities or head) *Use of iterative reconstruction technique DLP: 1200 mGy-cm FINDINGS: There is no acute intracranial hemorrhage or abnormal extra-axial collection. No intracranial mass effect or midline shift. No hydrocephalus. Scattered nonspecific foci of hypoattenuation are visualized within the periventricular white matter and basal ganglia. There is an arachnoid cyst within the posterior fossa, the size of which has remained stable when compared to prior imaging. The calvarium and skull base are intact. Mastoid air cells and middle ear cavities are well aerated. Small volume of layering fluid within the left frontal sinus cavity. CT/CT head/brain wo IV con IMPRESSION: There are scattered chronic small vessel ischemic changes within the periventricular white matter and basal ganglia. No evidence of acute territorial infarct or hemorrhage. Stable appearance of an arachnoid cyst within the posterior fossa.
[2023-02-28 11:02] VITALS: BP 162/94; PULSE 86; RESP 18; TEMP 36.1; O2SAT 100; BMI 30.9
[2023-02-28 11:28] LABS: Basophils Percent Auto 0.1 % (0-2); Eosinophils Absolute Auto 0.1 X10*3/uL (0.0-0.4); Eosinophils Percent Auto 0.5 % (0-4); Hematocrit 39.6 % (37.0-47.0); Hemoglobin 13.3 g/dl (12.0-16.0); Imm Gran Abs Auto 0.05 X10*3/uL (0.00-0.03); Imm Gran Pct Auto 0.5 % (0.0-0.4); Lymphocytes Absolute Auto 1.2 X10*3/uL (1.2-4.9); Lymphocytes Percent Auto 11.7 % (20-40); MANUAL DIFF FLAG NO; Mean Corpuscular HGB Conc 33.6 g/dl (31.0-35.0); Mean Corpuscular Hemoglobin 31.2 pg (27.0-33.0); Mean Platelet Volume 9.4 fL (9.4-12.3); Monocytes Absolute Auto 0.5 X10*3/uL (0.1-1.2); Monocytes Percent Auto 4.4 % (2-11); Neutrophils Absolute Auto 8.4 x10*3/uL (2.0-8.3); Neutrophils Percent Auto 82.8 % (45-73); Platelet Count 290 X10*3/uL (160-400); Red Blood Count 4.26 X10*6/uL (4.20-5.50); Red Cell Distribution Width 12.8 % (11.0-16.0); White Blood Count 10.2 X10*3/uL (4.8-10.8)
[2023-02-28 11:44] LABS: Alanine Aminotransferase 14 U/L (0-31); Albumin Level 4.1 g/dL (3.5-5.0); Alkaline Phosphatase 80 U/L (39-117); Anion Gap 19 (12-20); Aspartate Amino Transferase 18 U/L (5-31); Bilirubin Direct 0.2 mg/dL (0.0-0.5); Bilirubin Total 0.5 mg/dL (0.0-1.0); Blood Urea Nitrogen 14 mg/dL (9-16); Calcium 9.3 mg/dL (8.4-10.2); Carbon Dioxide 15 mmol/L (22-29); Chloride 103 mmol/L (96-108); Creatinine Clr Calc Pharmacy 60.7; Estimated Glomerular Filt Rate > 60; Glucose Random 102 mg/dL (60-115); Potassium 3.7 mmol/L (3.3-5.1); Sodium 133 mmol/L (135-145); Total Protein 7.8 g/dL (6.5-8.0)
[2023-02-28 15:18] VITALS: BP 154/82; PULSE 71; RESP 18; TEMP 36.6; O2SAT 98
[2023-02-28 16:14] LABS: Appearance Urine Clear; Color Urine Dark Yellow; Glucose Urine UA Negative (Negative); Leukocyte Esterase Urine Trace (Negative); Nitrite Urine Negative (Negative); PH 5.5 (5.0-9.0); Specific Gravity - Urine >= 1.030 (1.005-1.025); UMIC TRIGGER UACC YES; Urine Blood Negative (Negative); Urine Ketones 40 mg/dL (Negative); Urine Protein 30 (1+) mg/dL (Neg-Trace)
[2023-02-28 16:20] LABS: Bacteria Urine None Seen (None Seen); Squamous Epithelial Cell Urine 0-2 /HPF (0-2); WBC Urine 0-5 /HPF (0-5)
--- NOTE | 2023-02-28 16:44 | ED_ITS ---
HPI - General Adult General Chief complaint: General Medical Stated complaint: Abd pain/headache seen here 8/ Time Seen by Provider: 02/28/23 16:05 Source: patient, family (Patient's ) and old records reviewed Mode of arrival: ambulatory Limitations: no limitations History of Present Illness HPI narrative: 72-year-old female with past medical history significant for PE on Coumadin, history of stomach ulcers presents for evaluation abdominal pain, headache Patient reports that she had right lower abdominal pain that started 4 days ago. Her pain is in the a 10 10 she reports associated nausea, vomiting Patient reports associated headache. She does suffer from chronic migraines Denies any fevers, chills, trauma to head or neck pain Denies any blurry vision, dizziness The patient does also note a left lower leg rash which she was treated with clotrimazole and vitamin 2 days ago for She reports minimal improvement with her treatment No other complaints or concerns at this time Patient denies vomiting blood or any black or bloody stool Related Data Previous Rx's Medication Instructions Recorded cyclobenzaprine 5 mg tablet 5 mg PO TID PRN muscle spasm #10 10/11/20 tabs lidocaine 5 % topical patch 1 patch topical DAILY PRN back 10/11/20 pain #15 ea oxycodone-acetaminophen 5 mg-325 1 tab PO Q6H PRN pain #8 tabs 06/19/21 mg tablet (Percocet) oxycodone-acetaminophen 5 mg-325 1 tab PO TID PRN severe pain 12/25/ mg tablet (scale score 7-10) #5 tabs clotrimazole-betamethasone 1 1 appl topical BID 10 days #45 02/26/23 %-0.05 % topical cream grams eolkdqfvzk-ieclujsgrbmud-tmbzueit 1 cap PO TID PRN headache #12 caps 02/28/23 50 mg-300 mg-40 mg capsule (Fioricet) Allergies Allergy/AdvReac Type Severity Reaction Status Date / Time aspirin [Aspirin] Allergy Unknown NOT Verified 02/26/23 14:13 APPLICABLE ibuprofen [From Motrin] Allergy Unknown NOT Verified 02/26/23 14:13 APPLICABLE tramadol Allergy Seizure Verified 02/26/23 14:13 Review of Systems Constitutional: Constitutional: Denies chills and Reports headache(s) ENT: Reports headache(s) Cardiovascular: Cardiovascular: Denies chest pain and Denies dyspnea Respiratory: Respiratory: Denies cough and Denies dyspnea Gastrointestinal: Gastrointestinal: Reports abdominal pain, Denies constipation, Denies diarrhea, Reports nausea, Reports vomiting and Denies hematemesis Musculoskeletal: Musculoskeletal: Denies back pain Neurologic: Denies confusion and Reports headache(s) Psychiatric: Psychiatric: Denies anxiety and Denies confusion [facility] Past Medical History Medical History Pulmonary embolism Stomach ulcer Social History Social History Alcohol intake: never Patient Tobacco Use Status: Never used Tobacco Advance Directives: No Advance Directives Information Provided: No Physical Exam ED Vital Signs: Vital Signs - 24 hr 02/28/23 11:02 02/28/23 15:18 02/28/23 18:00 Temperature 97 F 97.8 F 98.3 F Pulse Rate 86 71 67 Respiratory Rate 18 18 16 Blood Pressure 162/94 H 154/82 H 152/87 H Pulse Oximetry 100 98 99 Oxygen Delivery Method Room Air Room Air Room Air BMI result Body Mass Index 30.9 Const General: No confusion Nutritional Appearance: well nourished Orientation/consciousness: No confusion HENMT Head: Yes normocephalic and Yes atraumatic Eyes Eyelids: Yes eyelids normal Conjunctivae: conjunctivae normal Sclerae: sclerae normal Corneas: corneas normal Pupils: Equal, round and reactive pupils present EOM: EOMs intact bilaterally Neck Neck: Yes full ROM Resp Effort & Inspection: normal respiratory effort, able to speak in complete sentences, no audible wheezes and not labored Auscultation: clear to auscultation bilaterally Cardio Rate: regular rate Rhythm: regular rhythm GI Inspection: No distended Palpation (GI): Soft to palpation, not firm, Tenderness to palpation present (GI) in the RLQ and suprapubicly; not in the LLQ, not in the LUQ and with no rebound tenderness and not rigid Auscultation: normoactive bowel sounds Skin Other: Erythematous rash to the left lateral lower leg. Some minor excoriations. No increased warmth or drainage, no edema, fluctuance or induration General skin exam: elasticity normal Neuro General: No confusion Cranial nerves: Yes CN's II-XII intact bilaterally, Yes Equal, round and reactive pupils present and Yes Bilaterally intact EOM present Cognition (Neuro): normal cognition Extrem Other: Moving all extremities well without any obvious deformities Course Reevaluation(s) Reevaluation #1: Discussed patient's workup with him that was largely unremarkable, she feels better, is not currently nauseous. She is requesting ?something for headache to go home with. ? Will prescribe a short course of Fioricet Time: 19:59 Medications Administered Discontinued Medications Generic Name Dose Route Start Last Admin Trade Name Henry PRN Reason Stop Dose Admin Sodium Chloride 1,000 mls @ 999 mls/hr 02/28/23 16:45 02/28/23 17:47 Ns IV 02/28/23 17:45 999 mls/hr .Q1H1M MAILE Administration Iohexol 100 ml 02/28/23 18:06 02/28/23 18:07 Iohexol 350 Mg/Ml 100 Ml Infus..Btl IV 02/28/23 18:07 85 ml ONCE ONE Administration Morphine Sulfate 4 mg 02/28/23 16:39 02/28/23 17:46 Morphine Sulfate 4 Mg/Ml Cartridge IVPUSH 02/28/23 16:40 4 mg ONCE ONE Administration Protocol Ondansetron HCl 4 mg 02/28/23 16:39 02/28/23 17:47 Ondansetron Hcl 4 Mg/2 Ml Vial IVPUSH 02/28/23 16:40 4 mg ONCE ONE Administration Medical Decision Making Medical Decision Making MDM Narrative: 72-year-old female presents for evaluation of abdominal pain and headache. She does suffer from chronic migraines. Patient states that currently she does not follow with GI because ?my GI doctor retired and they are trying to get me a new doctor. Patient reports that she has not had a colonoscopy/endoscopy in approximately 3 years. I reviewed her workup from a couple days ago, her white blood cell count is normal at 10.2, she is not anemic. She has a mild left shift. Given her tenderness on exam with a CT scan the abdomen pelvis. Will also do a CT scan of her brain as she has not had 1/2 years in our records. She has no neuro deficits. Concern for acute appendicitis versus obstruction given previous abdominal surgeries but she does report she is having some diarrhea, so less likely to be complete obstruction. Differential Diagnosis Differential Diagnoses: The differential diagnosis associated with the presentation includes Abdominal pain Acute appendicitis Diverticulosis Colitis Small bowel obstruction Peptic ulcer disease Lab Data MDM Lab Attestation statement: I reviewed the patient's lab results. No leukocytosis, no significant anemia, normal platelet count. Sodium is slightly low at 133 likely related to vomiting and poor oral intake. Potassium is normal at 3.7. Chloride is normal at 103 with a CO2 slightly low normal left 15. Renal function within normal limits with a BUN of 14 a creatinine of 0.74 02/28/23 11:23 02/28/23 11:23 Labs: Lab Results 02/28/23 02/28/23 02/28/23 Range/Units 11:23 11:23 15:58 WBC 10.2 (4.8-10.8) X10*3/uL RBC 4.26 (4.20-5.50) X10*6/uL Hgb 13.3 (12.0-16.0) g/dl Hct 39.6 (37.0-47.0) % MCV 93.0 (80.0-98.0) fL MCH 31.2 (27.0-33.0) pg MCHC 33.6 (31.0-35.0) g/dl RDW 12.8 (11.0-16.0) % Plt Count 290 (160-400) X10*3/uL MPV 9.4 (9.4-12.3) fL Immature Gran % (Auto) 0.5 H (0.0-0.4) % Neut % (Auto) 82.8 H (45-73) % Lymph % (Auto) 11.7 L (20-40) % [place] % (Auto) 4.4 (2-11) % Eos % (Auto) 0.5 (0-4) % Baso % (Auto) 0.1 (0-2) % Lymph # (Auto) 1.2 (1.2-4.9) X10*3/uL [place] # (Auto) 0.5 (0.1-1.2) X10*3/uL Eos # (Auto) 0.1 (0.0-0.4) X10*3/uL Baso # (Auto) 0.0 (0.0-0.2) X10*3/uL Abs Immat Gran (auto) 0.05 H (0.00-0.03) X10*3/uL Absolute Neuts (auto) 8.4 H (2.0-8.3) x10*3/uL Absolute Nucleated RBC 0.000 (0.0-0.012) X10*3/uL Nucleated RBC % (auto) 0.0 (0.0-0.2) /100WBC Sodium 133 L (135-145) mmol/L Potassium 3.7 D (3.3-5.1) mmol/L Chloride 103 (96-108) mmol/L Carbon Dioxide 15 L (22-29) mmol/L Anion Gap 19 (12-20) BUN 14 (9-16) mg/dL Creatinine 0.74 (0.5-1.4) mg/dL Estim Creat Clear Calc 60.7 Estimated GFR > 60 Random Glucose 102 (60-115) mg/dL Calcium 9.3 (8.4-10.2) mg/dL Total Bilirubin 0.5 (0.0-1.0) mg/dL Direct Bilirubin 0.2 (0.0-0.5) mg/dL AST 18 (5-31) U/L ALT 14 (0-31) U/L Alkaline Phosphatase 80 (39-117) U/L Total Protein 7.8 (6.5-8.0) g/dL Albumin 4.1 (3.5-5.0) g/dL Urine Color Dark Yellow Urine Appearance Clear Urine pH 5.5 (5.0-9.0) Ur Specific [place] >= 1.030 H (1.005-1.025) Urine Protein 30 (1+) H (Neg-Trace) mg/dL Urine Glucose (UA) Negative (Negative) mg/dL Urine Ketones 40 (Negative) mg/dL Urine Blood Negative (Negative) Urine Nitrite Negative (Negative) Ur Leukocyte Esterase Trace H (Negative) Urine RBC 3-5 H (0-2) /HPF Urine WBC 0-5 (0-5) /HPF Ur Squamous Epith Cells 0-2 (0-2) /HPF Urine Bacteria None Seen (None Seen) Hyaline Casts 3-5 (0-2) /LPF Radiology Impression Discussion of test interpretation with radiology: I have reviewed the radiologist's reading. Radiologist Impression: No acute intra-abdominal or pelvic pathology Discharge Plan Discharge Clinical Impression: Abdominal pain, Headache Patient Disposition: Home, Self-Care Instructions: Acute Headache (ED), Abdominal Pain (ED) Additional Instructions: Your workup in the emergency department today was reassuring. This includes her blood work, urine sample, CT scan of your abdomen and brain Follow-up with your primary doctor in your GI doctor You may use Fioricet as needed for further headaches You may use wobn-urc-vyhkdrc scopolamine patches for any nausea wall your flying Return for new or worsening symptoms Prescriptions: New xyetsyxlas-awnwhuhcnyzdh-iqzb [Fioricet] 50-300-40 mg capsule 1 cap PO TID PRN (Reason: headache) Qty: 12 0RF No Action cyclobenzaprine 5 mg tablet 5 mg PO TID PRN (Reason: muscle spasm) Qty: 10 0RF Rx Instructions: This medication may cause drowsiness or dizziness so use with caution lidocaine 5 % adhesive patch,medicated 1 patch topical DAILY PRN (Reason: back pain) Qty: 15 0RF Rx Instructions: leave on most painful area for up to 12 hrs oxycodone-acetaminophen 5-325 mg tablet 1 tab PO TID PRN (Reason: severe pain (scale score 7-10)) Qty: 5 0RF oxycodone-acetaminophen [Percocet] 5-325 mg tablet 1 tab PO Q6H PRN (Reason: pain) Qty: 8 0RF clotrimazole-betamethasone 1-0.05 % cream 1 appl topical BID 10 Days Qty: 45 0RF
[2023-02-28] MEDS: Morphine Sulfate 4 MG/ML CARTRIDGE IVPUSH (17:46)
[2023-02-28] MEDS: 0.9 % Sodium Chloride 1,000 ML 999 ML IV (17:47)
[2023-02-28] MEDS: ondansetron HCL 4 MG/2 ML VIAL IVPUSH (17:47)
[2023-02-28 18:00] VITALS: BP 152/87; PULSE 67; RESP 16; TEMP 36.8; O2SAT 99
[2023-02-28] MEDS: iohexoL 350 MG/ML 100 ML INFUS..BTL IV (18:07)
--- NOTE | 2023-02-28 18:39 | PC.NURSE ---
Meds given late d/t patient being difficult stick. 22 G IV inserted into back of right forearm. IV fluids running as ordered. Patients at her bedside.
[2023-02-28 20:55] VITALS: BP 145/77; PULSE 67; RESP 14; TEMP 37.1; O2SAT 97
== END 2023-02-28 21:08 | disposition home or self-care (01) ==
PROVIDERS: Physician Assistant Medical; Emergency Provider Emergency Medicine; PCP Internal Medicine
DX: R10.31 Right lower quadrant pain (principal); R51.9 Headache, unspecified; Z86.711 Personal history of pulmonary embolism; Z79.899 Other long term (current) drug therapy
CPT/HCPCS: 36415; 70450; 74177; 80048; 80076; 81001; 85025; 96374; 96375; 99284; J2270; J2405; Q9967

== ENCOUNTER 2024-01-07 08:52 | Emergency (ER) | payer MEDICARE, OTHER, SELFPAY ==
--- NOTE | ~2024-01-07 | XR_ITS ---
EXAMINATION: XR CHEST CLINICAL INFORMATION: Cough. COMPARISON: CT chest 10/27/2021. TECHNIQUE: Frontal view of the chest was obtained. FINDINGS: Stable prominence of the cardiomediastinal silhouette. Mediastinal lymphadenopathy is best visualized on prior CT chest. Mildly increased diffuse interstitial markings without focal consolidation. No pleural effusion or pneumothorax. A 7 mm pulmonary nodule in the right upper lobe is best visualized on prior CT chest. Stable asymmetric widening of the right acromioclavicular joint compared to a prior radiograph from 04/08/2018. No acute osseous findings. XR/XR chest 1V IMPRESSION: 1. Mildly increased interstitial markings which could be related with small airways disease, atypical/viral infection or chronic interstitial lung abnormality. 2. No consolidation. No pleural effusion or pneumothorax. 3. Recommend outpatient nonemergent CT chest follow-up for a previously described pulmonary nodule in the right upper lobe that is not well seen on this radiograph.
[2024-01-07 08:53] VITALS: BP 153/92; PULSE 84; RESP 20; TEMP 36.7; O2SAT 97; BMI 32.3
--- NOTE | 2024-01-07 09:38 | ED_ITS ---
HPI - General Adult General Chief complaint: General Medical Stated complaint: ? ear infection, congestion Time Seen by Provider: 01/07/24 09:08 Source: patient, family, RN notes reviewed and old records reviewed Mode of arrival: ambulatory History of Present Illness ED Provider: Maddie Earl PA-C HPI narrative: 73-year-old female with a medical history of COPD, PE, presenting to the ED complaining of nasal congestion, rhinorrhea, dry cough, and left ear pain 3 days. Denies known fever, chills, sick contacts, recent travel, SOB/CP, drainage from ear/hearing loss. has been using inhalers at with relief. Related Data Previous Rx's ?Medication ?Instructions ?Recorded cyclobenzaprine 5 mg tablet 5 mg PO TID PRN muscle spasm #10 10/11/20 tabs lidocaine 5 % topical patch 1 patch topical DAILY PRN back 10/11/20 pain #15 ea oxycodone-acetaminophen 5 mg-325 1 tab PO Q6H PRN pain #8 tabs 06/19/ mg tablet (Percocet) oxycodone-acetaminophen 5 mg-325 1 tab PO TID PRN severe pain 12/25/21 mg tablet (scale score 7-10) #5 tabs clotrimazole-betamethasone 1 1 appl topical BID 10 days #45 02/26/23 %-0.05 % topical cream grams voqprxvuzj-bfrvybwyepodv-hsxjuzxu 1 cap PO TID PRN headache #12 caps 02/28/23 50 mg-300 mg-40 mg capsule (Fioricet) amoxicillin 875 mg-potassium 1 tab PO BID 7 days #14 tabs 01/07/24 clavulanate 125 mg tablet Allergies Allergy/AdvReac Type Severity Reaction Status Date / Time aspirin [Aspirin] Allergy Unknown NOT Verified 01/07/24 08:56 APPLICABLE ibuprofen [From Motrin] Allergy Unknown NOT Verified 01/07/24 08:56 APPLICABLE tramadol Allergy Seizure Verified 01/07/24 08:56 Review of Systems Review of Systems: Constitutional: No Weight loss, No Fever, No Chills ENT/Mouth: + Ear Pain, + Nasal Congestion, No Sinus Pain, No Hoarseness, No sore throat, + Rhinorrhea, No Swallowing Difficulty Cardiovascular: No Chest Pain, No SOB Respiratory: + Cough, No Sputum, No Wheezing Gastrointestinal: No Nausea, No Vomiting, No Diarrhea, No Constipation, No Abdominal pain Musculoskeletal: No joint pain, No Myalgias, No Joint Swelling Skin: No Skin Lesions, No rash Neuro: No Weakness Yes all other systems are reviewed and are negative Constitutional: Constitutional: Reports as per [facility] Past Medical History Attestation statement: The following information was validated with the patient. Source: old records reviewed Medical History Pulmonary embolism Stomach ulcer Social History Social History Alcohol intake: never Patient Tobacco Use Status: Never used Tobacco Advance Directives: No Advance Directives Information Provided: Yes Physical Exam ED Vital Signs: Vital Signs - 24 hr 01/07/24 08:53 Temperature 98.0 F Pulse Rate 84 Respiratory Rate 20 Blood Pressure 153/92 H Pulse Oximetry 97 Oxygen Delivery Method Room Air BMI result Body Mass Index 32.3 Const General: cooperative, healthy appearing and no acute distress Orientation/consciousness: patient oriented x3 Limitations: no limitations HENMT Head: Yes normal to inspection and Yes atraumatic Ears: hearing grossly normal bilaterally, mastoids normal and unable to visualize TM bilaterally (Due to cerumen impaction) General nose exam: Normal external nose present and Nasal discharge present Face and sinus: Yes normal facial exam Mouth: no drooling Throat: Yes posterior oropharynx normal, Yes tonsils normal, Yes uvula midline, No peritonsillar mass, No posterior oropharynx abnormal, No uvula laterally displaced and No uvular edema Eyes General: appearance normal, both eyes and all related structures EOM: EOMs intact bilaterally Neck Neck: Yes normal visual inspection and Yes no meningeal signs Resp Effort & Inspection: normal respiratory effort, no respiratory distress and no stridor Auscultation: clear to auscultation bilaterally, no crackles and no wheezes Cardio Rate: regular rate Heart sounds: S1 normal heart sound present and S2 normal heart sound present Skin Rashes: no rashes Wounds: no wounds Neuro General: patient oriented x3, tone normal and no meningeal signs Cranial nerves: Yes CN's II-XII intact bilaterally Gait exam (Neuro): Normal gait present Extrem General: Yes normal to inspection Course Course Course Narrative: -1024--COVID-19 positive XR chest 1V IMPRESSION: 1. Mildly increased interstitial markings which could be related with small airways disease, atypical/viral infection or chronic interstitial lung abnormality. 2. No consolidation. No pleural effusion or pneumothorax. 3. Recommend outpatient nonemergent CT chest follow-up for a previously described pulmonary nodule in the right upper lobe that is not well seen on this radiograph. > discussed need a nonemergent outpatient chest CT. -No hypoxia, no wheezing. No tachycardia. > no indication for steroids/anti biotics at this time Results discussed with patient including worrisome signs and symptoms and strict return precautions, and when to return to the emergency department. They verbalized understanding and feel safe for discharge at this time. Medications Administered Discontinued Medications Generic Name Dose Route Start Last Admin Trade Name Freq PRN Reason Stop Dose Admin Docusate Sodium 100 mg 01/07/24 09:30 01/07/24 10:11 Docusate Sodium 100 Mg/10 Ml Liquid PO 01/07/24 09:31 100 mg ONCE ONE Administration Procedures Ear Wax Removal Both Ears: Cerumenolytic Used: Colace and 5-10% Sodium Bicarb solution Results: Re-examined: cerumen removed completely TM Examination: other (Left TM with effusion/fluid behind TM; Right TM WNL) Ear Canal Exam: atraumatic Patient Tolerated Procedure: well Complications: no problems Technique: ear canal irrigated and ear canal curetted Medical Decision Making Medical Decision Making [facility] Narrative: 73-year-old female with a medical history of COPD, PE, presenting to the ED complaining of nasal congestion, rhinorrhea, dry cough, and left ear pain 3 days. On exam vital signs stable, NAD, nontoxic appearing, talking in complete sentences, lungs CTA. Bilateral cerumen impaction appreciated, unable to visualize TMs. Oropharynx WNL. Concern for viral illness vs otitis media vs bronchitis vs pneumonia. Low suspicion for severe sepsis. Unlikely ACS/PE, mastoiditis, ENGINEERING SCIENTIST retropharyngeal abscess Plan: Viral studies, CXR, irrigate ears Please refer to course for remaining clinical decision making, interpretation of labs/imaging results, and discussions with consultants and/or family members. Differential Diagnosis Differential Diagnoses: The differential diagnosis associated with the presentation includes As above Lab Data [facility] Lab Attestation statement: I reviewed the patient's lab results. Labs: Lab Results 01/07/24 Range/Units 09:01 Influenza Type A (PCR) NEGATIVE (Negative) Influenza Type B (PCR) NEGATIVE (Negative) RSV RNA Qual (PCR) NEGATIVE (Negative) SARS-CoV-2 RNA (RT-PCR) POSITIVE A (Negative) Independent Interpretation I performed an independent interpretation of an: Plain X-Ray Radiology Impression Discussion of test interpretation with radiology: I have reviewed the radiologist's reading. External Record Review External record reviewed: Inpatient record, Office record, Outpatient record, Prior outpatient labs, Prior outpatient radiology, Primary care record and Outside ED record Tests considered The following testing was considered but not selected: As above Prescription Management I considered prescription management with: Antibiotic Chronic Conditions Patient?s care impacted by: Other (copd) Discharge Plan Discharge Clinical Impression: COVID-19, Otitis media Patient Disposition: Home, Self-Care Additional Instructions: YOU HAVE COVID-19. Please continue to use your inhalers/home medications You also have an inner ear infection. Augmentin is an antibiotic please take as prescribed. Please eat while taking antibiotics At this time you will be okay for discharge. Please self isolate for 5 days. Do not expose yourself to others. You may not go to work or school. Please continue to follow cold instructions and wash your hands frequently. You may take Tylenol / Motrin as directed on the bottle for pain or fever. If you have constant or persistent shortness of breath, fever unresolved with medications, chest pain, or your unable to eat or drink please return to the ED CDC Guidelines for home isolation: - Stay away from others - WEAR A MASK if you are sick AND STAY HOME - Cover your mouth and nose with a tissue when you cough or sneeze. Dispose of tissues in a lined trash can and wash your hands immediately with soap and water for at least 20 seconds. If soap and water are not available, clean hands with alcohol-based hand safety companion that contains at least 60% alcohol. - Clean your hands often with soap and water for at least 20 seconds - Avoid touching your eyes, nose and mouth with unwashed hands - Do not share dishes, drinking glasses, cups, eating utensils, towels, or bedding with other people in your home. After using these items, wash them thoroughly with soap and water or put in the redipper. - Clean high-touch surfaces in your isolation area ( sick room and bathroom) every day; let a caregiver clean and disinfect high-touch surfaces in other areas of the home. Clean the area or item with soap and water or another detergent if it is dirty. Then, use a household disinfectant. - Limit contact with pets and animals: If you must care for a pet, wash your hands before and after interacting with them) Prescriptions: New amoxicillin-pot clavulanate 875-125 mg tablet 1 tab PO BID 7 Days Qty: 14 0RF No Action cyclobenzaprine 5 mg tablet 5 mg PO TID PRN (Reason: muscle spasm) Qty: 10 0RF Rx Instructions: This medication may cause drowsiness or dizziness so use with caution lidocaine 5 % adhesive patch,medicated 1 patch topical DAILY PRN (Reason: back pain) Qty: 15 0RF Rx Instructions: leave on most painful area for up to 12 hrs oxycodone-acetaminophen 5-325 mg tablet 1 tab PO TID PRN (Reason: severe pain (scale score 7-10)) Qty: 5 0RF oxycodone-acetaminophen [Percocet] 5-325 mg tablet 1 tab PO Q6H PRN (Reason: pain) Qty: 8 0RF clotrimazole-betamethasone 1-0.05 % cream 1 appl topical BID 10 Days Qty: 45 0RF ogtjkamtev-ovsscgzgzyrsz-fuwu [Fioricet] 50-300-40 mg capsule 1 cap PO TID PRN (Reason: headache) Qty: 12 0RF Referrals: Ankita Rolon MD [Primary Care Provider] - 1 week Print Language: Wolof
[2024-01-07 09:43] LABS: Influenza A PCR NEGATIVE (Negative); Influenza B PCR NEGATIVE (Negative); Resp Syncy Virus RNA Qual PCR NEGATIVE (Negative); SARS COV2 PCR INHOUSE POSITIVE (Negative)
[2024-01-07] MEDS: Docusate Sodium 100 MG/10 ML LIQUID PO (10:11)
[2024-01-07] MEDS: Butalb/Acetamin/Caff 50/325/40 TABLET 1 TAB PO (11:29)
[2024-01-07 11:36] VITALS: BP 148/67; PULSE 67; RESP 16; TEMP 36.4; O2SAT 98
== END 2024-01-07 11:38 | disposition home or self-care (01) ==
PROVIDERS: Emergency Provider Emergency Medicine Emergency Medical Services; PCP Internal Medicine
DX: U07.1 COVID-19 (principal); H66.92 Otitis media, unspecified, left ear; H61.23 Impacted cerumen, bilateral; H92.02 Otalgia, left ear; R05.9 Cough, unspecified; R06.02 Shortness of breath; J44.9 Chronic obstructive pulmonary disease, unspecified; Z86.711 Personal history of pulmonary embolism; Z79.01 Long term (current) use of anticoagulants
CPT/HCPCS: 0241U; 69210; 71045; 99283

== ENCOUNTER 2025-05-08 17:45 | Emergency (ER) | payer OTHER, SELFPAY ==
--- OUTSIDE RECORDS SUMMARY | 2024-10-01 06:00 | XMS_ITS ---
[facility] Larisa chelita [place] Address [address] [place] [id number] Care Team Providers Care Knot Bumper Name Role Phone Ольга SHARMA, Ankita Lagos Primary Care Provider Unav ailable Black, Alicia Unavailable [phone] Allergies Allergen (clinical drug ingredient) Drug/Non Drug Allergy documented on EMR Reaction Allergy Type Onset Date Status ibuprofen Advil Unknown Drug Allergy Active Aleve Unknown Drug Allergy Active aspirin Aspirin Unknown Drug Allergy Active Motrin Unknown Drug Allergy Active tramadol Tramadol HCl Seizure Drug Allergy Acti ve Medications Medication SIG (Take, Route, Frequency, Duration) Notes Start Date End Date Status Thyroid Not-Taking Walking Boot/Pneumatic As directed Wear Daily; Duration: Until further notice 07/10/2019 Not-Taking Walking Boot/Pneumatic As directed Wear Daily; Duration: Until further notice 08/03/2023 Not-Taking predniSONE Not-Takin g Physical Therapy . . . 2-3x/week; Duration: 3-4 weeks 02/01/2022 Not-Taking Fluorouracil 5 % Externally Once a day Active Ventolin HFA Active Acetaminophen Extra Strength 500 MG 2 tablet as needed Orally every 6 hrs; Duration: 30 days PRN 10/14/2022 Active Orthopedic Extra Depth Shoes With Custom Heat Molded Multidensity Innersoles as directed Wear Daily; Duration: as needed 05/02/2019 Not-Taking Symbicort Not-Taking Omeprazole Active Pantoprazole Sodium Active Ondansetron HCl Acti ve Vitamin D (Ergocalciferol) Active Gabapentin Active Coumadin 1 MG Orally Active Lovenox 2 shots Once a day PRN for sx Active Levothyroxine Sodium Active HYDROmorphone HCl Ac tive Anti-Diarrheal Activ e Encounters Encounter Location Date Provider Diagnosis [facility] [address] [address] 10/01/2024 lAicia Oropeza Plan Of Treatment Next Appt Details Provider Name:Alicia Oropeza , 05/27/2025 09:30:00 AM, [address] [place], [address], Progress Notes * Florencio STRATTONOB:1950 (74 yo F)Acc No.[id number]:10/01/2024 Progress Note Patient: Shantal MALAVE Provider: Syd Oropeza DPM :1950 A ge:73 Y S ex:Female Date:10/01/2024 Address:[address] [place] [address], [id number] Pcp:Ankita Rolon MD Subjective: * Chief Complaints: * * Medical History: A rthritis, Back,Hip,and Knee pain, Stomach ulcer, Thyroid disorder, Warts, Measles, Mumps, Chicken pox, Joint implants/screws, Transfusions, COPD, Covid-19. * Medications: T aking Coumadin 1 MG Tablet Orally , Taking Lovenox 2 shots Once a day , Notes to Pharmacist: PRN for sx, Taking Levothyroxine Sodium , Taking HYDROmorphone HCl , Taking Anti-Diarrheal , Taking Ondansetron HCl , Taking Vitamin D (Ergocalciferol) , Taking Gabapentin , Taking Omeprazole , Taking Pantoprazole Sodium , Taking Fluorouracil 5 % Solution Externally Once a day , Taking Ventolin HFA , Taking Acetaminophen Extra Strength 500 MG Tablet 2 tablet as needed Orally every 6 hrs , Notes to Pharmacist: PRN, Not-Taking/PRN Orthopedic Extra Depth Shoes With Custom Heat Molded Multidensity Innersoles as directed Wear Daily , Not-Taking/PRN Symbicort , Not-Taking/PRN Physical Therapy . . . . 2-3x/week , Not-Taking/PRN Walking Boot/Pneumatic As directed Wear Daily , Not-Taking/PRN predniSONE , Not- Taking/PRN Walking Boot/Pneumatic As directed Wear Daily , Not-Taking/PRN Thyroid * Allergies: A spirin: Contraindication, Advil: Contraindication, Aleve: Contraindication, Motrin: Contraindication, Tramadol HCl: Seizure - Allergy. Objective: * Vitals: Assessment: Plan: * Treatment: * Images: * The named appointment provid er may or may not be the originator of this progress note, and it is not deemed complete until electronically signed by the appointment provider. Sign off status: Pending * Provider: Syd Oropeza DPM Date: 0 10/01/2024 Generated for Dony restrepo/Timoteo/Mehnaz on: 08:02 PM EDT
--- OUTSIDE RECORDS SUMMARY | 2024-11-26 05:30 | XMS_ITS ---
Author Organization [facility] Address [address] [place] [address] Care Team Providers Care Block Breaker Operator Name Role Phone Ольга SHARMA, Ankita Lagos Primary Care Provider Unav ailable SandipAlicia Unavailable [phone] Encounters Encounter Location Date Provider Diagnosis [address] [address] 11/26/2024 Alicia Oropeza Plan Of Treatment Next Appt Details Provider Name:Alicia Oropeza , 05/27/2025 09:30:00 AM, [address] [place], [address], Progress Notes * Florencio STRATTONOB:1950 (74 yo F)Acc No.[id number]:11/26/2024 Progress Note Patient: Shantal MALAVE Provider: Syd Oropeza DPM :1950 A ge:74 Y S ex:Female Date:11/26/2024 Address:[address] [place] [address] [id number] Pcp:Ankita Rolon MD Subjective: * Chief Complaints: * * Medical History: Objective: * Vitals: Assessment: Plan: * Treatment: * Images: * The named appointment provid er may or may not be the originator of this progress note, and it is not deemed complete until electronically signed by the appointment provider. Sign off status: Pending * Provider: Syd Oropeza DPM Date: 0 11/26/2024 Generated for Jeevani lauro/Timoteo/eTransmitting on: 1 08:01 PM EDT
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
[2025-05-08 18:02] VITALS: BP 155/86; PULSE 86; O2SAT 97
[2025-05-08 18:04] VITALS: BP 133/80; PULSE 81; RESP 16; TEMP 36.6; O2SAT 96; BMI 29.7
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
--- OUTSIDE RECORDS SUMMARY | 2025-05-08 20:02 | XMS_ITS | Data Portability ---
[facility] Address [address] [place] [address] Assessment No assessment recorded. Plan of Treatment Reminders Order Date Submit Date Provider Last Modified By Organization Details Last Modified Time Details Appointments None record ed. Lab None record ed. Referral None record ed. Procedures None record ed. Surgeries None record ed. Imaging None record ed. Medication Orders None record ed. Patient TargetsNo targets recorded. Patient Instructions Encounter Date Encounter Id Patient Instructions Last Modified By Organization Details Last Modified Time 09/08/2022 [id number] cuts: care instructions [email or web address] Not available 09/08/2022 20:46:23 application of wound dressing* ANTHONY Not available 09/08/2022 20:58:29 Discharge Instructions - Wound Care - Wash the wound gently with soap and warm water once daily. Otherwise keep wound clean, dry and covered with a dressing. - Do not immerse in water, and do not use alcohol or peroxide to clean. - Elevate to decrease pain and improve healing. - Minimize use of affected body part. - Return here or see your doctor for any sign of infection, including redness, swelling, pus or increased pain. - If you received a tetanus shot the site may become sore and you may develop a low-grade fever. Take Tylenol if you have fever or pain. Return for a more severe reaction. - See your doctor or return here if not improving in 3 days. [email or web address] Not available 09/08/2022 20:45:29 Reason for Referral None Reported. Results Created Date Observation Date Name Description Value Unit Range Abnormal Flag Note LastModifiedBy Organization Detail LastModifiedTime 09/08/1909/08/2022 appli catio n of wound dress ing* Applied? Yes Not Available [facility] [address] [place] [address], [id number], 09/08/2022 20:46:17 Result Notes None recorded. Problems Name Problem SNOMED Code Status Onset Date Resolution Date Notes Provider Name and Address Organization Details Recorded Time Gastroesophage al reflux disease 110487476 Active 2022 Crystal Durand null, PA - [facility] 3 19:15:15 Hypothyroidism 49515558 Active 2022 Crystal Durand null, PA - [facility] 3 19:15:23 Chronic obstructive pulmonary disease 81545538 Active 2022 Crystal Durand null, PA - [facility] 3 19:16:35 Anemia 080988560 Active 2022 Crystal Durand null, PA - [facility] 3 19:18:58 Notes:On blood thinner Problem Notes None recorded. Procedures Surgical History Date Name Laterality Status Provider Name and Address Organization Details Recorded Time total replacement of hip completed Crystal Santos PA - [facility] 09/08/2022 19:17:03 Imaging Results None recorded. Procedure Notes None recorded. Medical Equipment None Reported. Allergies Allergen ID Allergen Name Allergen Category Reaction Reaction Severity Criticality Documentation Date Start Date Code Code System Note Provider Name and Address Organization Details Recorded Time 615337 aspirin medicatio n anaphylax is Not available low 09/08/2022 1191 RxNorm Crystal Durand null, PA - [facility] 3 19:13:44 926938 ibuprofen medicatio n anaphylax is Not available high 09/08/2022 5640 RxNorm Crystal Santos null, PA - [facility] 3 19:13:53 901646 tramadol medicatio n anaphylax is Not available high 09/08/2022 34555 RxNorm Crystal Durand null, PA - [facility] 3 19:13:59 Medications Name Sig Start Date Stop Date Status Note LastModified by Organization Details LastModified Time cap-2 pain formulation cream Apply 1-3 grams to the affected area 3-4 times daily {(FEET)] active Not Available Not Available No t Available loperamide 2 mg capsule TAKE 1 CAPSULE BY MOUTH FOUR TIMES DAILY NEEDED FOR DIARRHEA active Not Available Not Available No t Available hydrocodone 5 mg-acetamin ophen 325 mg tablet TAKE 1 TABLET BY MOUTH EVERY 8 HOURS NEEDED FOR PAIN. DO NOT DRIVE WHILE TAKING THIS MEDICATIO N 09/08 completed Not Available Not Available Not Available ondansetron HCl 4 mg tablet TAKE 1 TABLET BY MOUTH EVERY 8 HOURS NEEDED FOR NAUSEA 09/08 completed Not Available Not Available Not Available prednisone 5 mg tablet active Not Available Not Available Not Available ciprofloxac in 250 mg tablet TAKE 1 TABLET BY MOUTH TWICE DAILY 09/08 completed Not Available Not Available Not Available omeprazole 40 mg capsule,del ayed release TAKE 1 CAPSULE BY MOUTH DAILY active Not Available Not Available No t Available oxycodone-a cetaminophe n 5 mg-325 mg tablet TAKE 1 TABLET BY MOUTH EVERY 6 HOURS NEEDED 09/08 completed Not Available Not Available Not Available methocarbam ol 750 mg tablet TAKE 1 TABLET BY MOUTH EVERY 8 HOURS NEEDED FOR PAIN 09/08 completed Not Available Not Available Not Available tamsulosin 0.4 mg capsule TAKE 1 CAPSULE BY MOUTH EVERY NIGHT active Not Available Not Available No t Available cephalexin 500 mg capsule TAKE 1 CAPSULE BY MOUTH TWICE DAILY 09/08 completed Not Available Not Available Not Available warfarin 2 mg tablet TAKE 1 TABLET BY MOUTH EVERY DAY DIRECTED. MAY CAUSE HEAVY BLEEDING. TAKE AT THE SAME TIME EVERYDAY. DO NOT CHANGE DIETARY HABITS active Not Available Not Available No t Available gabapentin 300 mg capsule TAKE 1 CAPSULE BY MOUTH THREE TIMES DAILY active Not Available Not Available No t Available omeprazole 20 mg capsule,del ayed release TAKE 1 CAPSULE BY MOUTH TWICE DAILY active Not Available Not Available No t Available gabapentin 100 mg capsule TAKE 1 CAPSULE BY MOUTH ONCE IN THE AFTERNOON TO BE TAKEN WITH THE 300 MG CAPSULE active Not Available Not Available No t Available ergocalcife rol (vitamin D2) 1,250 mcg (50,000 unit) capsule TAKE 1 CAPSULE BY MOUTH 1 TIME A WEEK active Not Available Not Available No t Available levofloxaci n 750 mg tablet active Not Available Not Available Not Available hydroxyzine HCl 10 mg tablet TAKE 1 TABLET BY MOUTH EVERY DAY NEEDED FOR SLEEP OR ITCHING active Not Available Not Available No t Available ondansetron 4 mg disintegrat ing tablet DISSOLVE 1 TABLET ON THE TONGUE THREE TIMES DAILY 09/08 completed Not Available Not Available Not Available levothyroxi ne 112 mcg tablet TAKE 1 TABLET BY MOUTH EVERY DAY active Not Available Not Available No t Available amoxicillin 875 mg-potassiu m clavulanate 125 mg tablet TAKE 1 TABLET BY MOUTH TWICE DAILY 09/08 completed Not Available Not Available Not Available Ventolin HFA 90 mcg/actuati on aerosol inhaler INHALE 2 PUFFS BY MOUTH EVERY 4 TO 6 HOURS NEEDED active Not Available Not Available No t Available oxycodone 5 mg tablet TAKE 1 TABLET BY MOUTH EVERY 6 HOURS NEEDED FOR PAIN 09/08 completed Not Available Not Available Not Available enoxaparin 80 mg/0.8 mL subcutaneou s syringe INJECT 70 MG INTO THE SKIN EVERY 12 HOURS active Not Available Not Available No t Available Symbicort 80 mcg-4.5 mcg/actuati on HFA aerosol inhaler INHALE 2 PUFFS BY MOUTH TWICE DAILY IN THE MORNING AND IN THE EVENING active Not Available Not Available No t Available diclofenac 1 % topical gel APPLY 10 GRAMS TOPICALLY TO THE AFFECTED AREA DAILY active Not Available Not Available No t Available Vitamin D3 50 mcg (2,000 unit) tablet TAKE 1 TABLET BY MOUTH DAILY active Not Available Not Available No t Available Kareen Burger [facility] spacer USE WITH INHALER active Not Available Not Available No t Available Vitals Date Recorded Body height Body mass index (BMI) Body weight Oxygen saturation Oxygen saturation in Arterial blood by Pulse oximetry Pain severity - 0-10 verbal numeric rating [Score] - Reported Heart rate Respiratory rate Body temperature Systolic And Diastolic Provider Name and Address Organization Details Last Updated DateTime 3 152.4 cm 32 kg/m2 82319.1 5 g 95 % 95 % 4 75 /min 20 /min 97.7 [degF] 146/74 mm[Hg] Crystal AYALA - [facility] 3 19:18:20 Social History Question Answer Notes LastModified by Organizat ion Details LastModified Time Tobacco Smoking Status Never Smoker Crystal wagner PA [facility] 09/08/2022 19:16:28 Have You Had Direct Contact, Or Contact During Intimacy, With Monkeypox Rash, Scabs, Or Body Fluids From A Person With Monkeypox? No Information not available 09/08/2022 Have You Recently Traveled Abroad? No Information not available 09/08/2022 Sex: Unknown Functional Status Question Answer Note LastModified by Organizat ion Details LastModified Time Do you use any illicit or recreational drugs? No Information not available 09/08/2022 Do you or have you ever used any other forms of tobacco or nicotine? No Information not available 09/08/2022 What is your level of alcohol consumption? None Information not available 09/08/2022 Mental Status None recorded. Family History Relationship Description Onset Age of this Age Resolved Age Notes LastModified by Organization Details LastModified Time Father No current problems or disability Not available 09/08 19:16:22 Mother No current problems or disability Not available 09/08 19:16:22 Medical History No medical history recorded. Gynecological HistoryNo gynecological history recorded. Obstetrics History GPAL:G 0 P 0 0 0 0 Immunizations Vaccine Type Date Status Note Provider Nam e and Address Organization Details Recorded Time zoster recombinant 0 completed Crystal Durand null, PA - [facility] 09/08/2022 19:13:34 zoster recombinant 9 completed Crystal Durand null, PA - [facility] 09/08/2022 19:13:34 Influenza, high-dose, quadrivalent, PF 2 completed Crystal Durand null, PA - [facility] 09/08/2022 19:13:34 Influenza, adjuvanted, quadrivalent, PF 1 completed Crystal Durand null, PA - [facility] 09/08/2022 19:13:34 COVID-19, mRNA, LNP-S, PF, 100 mcg/0.5mL dose or 50 mcg/0.25mL dose 1 completed Crystal Santos null, PA - [facility] 09/08/2022 19:13:34 COVID-19, mRNA, LNP-S, PF, 100 mcg/0.5mL dose or 50 mcg/0.25mL dose 1 completed Crystal Santos null, PA - [facility] 09/08/2022 19:13:34 COVID-19, mRNA, LNP-S, PF, 30 mcg/0.3 mL dose 1 completed Crystal Santos null, PA - [facility] 09/08/2022 19:13:34 COVID-19, mRNA, LNP-S, PF, 30 mcg/0.3 mL dose 1 completed Crystal Santos null, PA - [facility] 09/08/2022 19:13:34 COVID-19, mRNA, LNP-S, PF, 30 mcg/0.3 mL dose, noah-sucrose 2 completed Crystal Durand null, PA - [facility] 09/08/2022 19:13:35 COVID-19, mRNA, LNP-S, bivalent, PF, 30 mcg/0.3 mL dose 2 completed Crystal Santos null, PA - [facility] 09/08/2022 19:13:35 pneumococcal polysaccharide PPV23 7 completed Crystal Durand null, PA - [facility] 09/08/2022 19:13:35 pneumococcal polysaccharide PPV23 5 completed Crystal Durand null, PA - [facility] 09/08/2022 19:13:35 pneumococcal polysaccharide PPV23 0 completed Crystal Durand null, PA - [facility] 09/08/2022 19:13:35 Tdap 8 completed Crystal Durand null, PA - [facility] 09/08/2022 19:13:35 Pneumococcal conjugate PCV 13 6 completed Crystal Durand null, PA - [facility] 09/08/2022 19:13:35 Influenza, high-dose, trivalent, PF 7 completed Crystal Durand null, PA - [facility] 09/08/2022 19:13:35 Influenza, high-dose, trivalent, PF 8 completed Crystal Durand null, PA - [facility] 09/08/2022 19:13:35 Influenza, high-dose, trivalent, PF 9 completed Crystal Santos null, PA - [facility] 09/08/2022 19:13:35 Influenza, split virus, trivalent, preservative 1 completed Crystal Santos null, PA - [facility] 09/08/2022 19:13:35 Influenza, split virus, trivalent, preservative 5 completed Crystal Durand null, PA - [facility] 09/08/2022 19:13:35 Influenza, split virus, trivalent, preservative 9 completed Crystal Santos null, PA - [facility] 09/08/2022 19:13:35 Influenza, split virus, trivalent, preservative 2 completed Crystal Santos null, PA - [facility] 09/08/2022 19:13:35 Influenza, split virus, trivalent, preservative 3 completed Crystal Durand null, PA - [facility] 09/08/2022 19:13:35 Influenza, split virus, trivalent, preservative 6 completed Crystal Santos null, PA - [facility] 09/08/2022 19:13:35 Influenza, split virus, trivalent, preservative 4 completed Crystal Santos null, PA - [facility] 09/08/2022 19:13:35 Influenza, split virus, trivalent, preservative 0 completed Crystal Santos null, PA - [facility] 09/08/2022 19:13:35 Novel [id number], preservative-free 9 completed Crystal Santos null, PA - [facility] 09/08/2022 19:13:35 Td (adult), 2 Lf tetanus toxoid, preservative free, adsorbed 2 completed Crystal Durand null, PA - [facility] 09/08/2022 19:13:35 Past Encounters Encounter ID Performer Location Encounter Start Date Encounter Closed Date Diagnosis/Indication Diagnosis SNOMED-CT Code Diagnosis ICD10 Code Diagnosis IMO Codes Diagnosis Note [id number] [facility] [address] [place] [address] 09/17/2015 09:19:26 09/17/2015 09:45:22 [id number] [address] [address] [place] [address] 05/31/2019 12:25:22 05/31/2019 13:11:43 [id number] [address] [place] [address] 04/21/2021 14:08:21 04/21/2021 15:38:06 [id number] [address] [address] [address] [place] [address] 01/27/2020 12:22:56 01/27/2020 13:44:23 [id number] [address] [address] [address] [place] [address] 11/24/2018 16:25:41 11/24/2018 18:10:21 [id number] [address] [address] [place] [address] 06/13/2020 08:21:50 06/13/2020 10:21:26 [id number] [address] [address] [place] [address] 02/07/2020 14:47:19 02/07/2020 16:43:02 [id number] [address] [address] [place] [address] 02/12/2016 11:06:38 02/12/2016 11:45:32 [id number] ALFONSO GANDHI MD [address] [place] [address] 09/08/2022 17:29:28 09/08/2022 20:47:20 Laceration of finger of left hand [id number] S61.211A Health Concerns Section Related Observation LastModified by Organization Detai ls LastModified Time None Recorded Concern Status LastModified by Organization Details LastModified Time None Recorded Advance Directives Directive None Recorded Payers Insurance Date Sequence Insurance Name Policy Number Policy More Covered Member ID More Member ID Guarantor Name 09/08/2022 1 [place] [employer] Shantal Abi Tabatha [id number] Shantal Mays 10/10/2022 2 [facility] (MEDICARE SUPPLEMENT) Shantal Abi Tabatha [id number] Shantal Mays 09/08/2022 [employer] (MEDICARE DME REGION A) Shantal Mays [id number] Shantal Mays Notes Date Note Type Note Provider Name and Address Organization Details Recorded Time 09/08/2022 text/html UC Wound/LacerationRep orted by PatientHPIFor location, patient reportshands. For quality, patient reportsnot bleeding,no undermining,no cellulitis,no drainage,no eschar,laceration, andavulsion. For severity, patient reportsmild. For onset/timing, patient reportsdate of initial injury: 09/08/2022. For context, patient reportstrauma. For associated symptoms, patient reportsno fever,no bruising,no numbness,no tingling, andnormal sensation. Cut left pointer finger with new very sharp knife around 1600, was cutting up green peppers. On blood thinners. Last tetanus shot was last year, see vaccines. ALFONSO GANDHI MD [address] [place], [address], [place] - [facility] 10/10/2022 15:58:22 OBGyn Episode No OBEpisode recorded.
--- OUTSIDE RECORDS SUMMARY | 2025-05-08 20:02 | XMS_ITS | Patient Health Record ---
Author Organization [facility] [place] Address [address] [place] [address] Care Team Providers Care Trade Sales Assistant Name Role Phone Ольга SHARMA, Ankita Lagos Primary Care Provider Unav ailable Black, Alicia Unavailable [phone] Allergies Allergen (clinical drug ingredient) Drug/Non Drug Allergy documented on EMR Reaction Allergy Type Onset Date Status ibuprofen Advil Unknown Drug Allergy Active Aleve Unknown Drug Allergy Active aspirin Aspirin Unknown Drug Allergy Active Motrin Unknown Drug Allergy Active tramadol Tramadol HCl Seizure Drug Allergy Acti ve Results Component Value Reference Range Notes X ray : Foot, left 3V Reviewed date:06/28/2024 02:46:05 PM Interpretation:See Examination above Performing Lab: Notes/Report: See Examination above X ray : Foot, left 3V Reviewed date:11/08/2024 07:36:39 PM Interpretation:See Examination above Performing Lab: Notes/Report: See Examination above Reason For Referral No Information Medications Medication SIG (Take, Route, Frequency, Duration) Notes Start Date End Date Status Thyroid Not-Taking Fluorouracil 5 % Externally Once a day Active Coumadin 1 MG Orally Active Ventolin HFA Active Lovenox 2 shots Once a day PRN for sx Active Acetaminophen Extra Strength 500 MG 2 tablet as needed Orally every 6 hrs; Duration: 30 days PRN 10/14/2022 Active Vitamin D (Ergocalciferol) Active Walking Boot/Pneumatic As directed Wear Daily; Duration: Until further notice 08/03/2023 Not-Taking Gabapentin Active predniSONE Not-Takin g Omeprazole Active Walking Boot/Pneumatic As directed Wear Daily; Duration: Until further notice 07/10/2019 Not-Taking Pantoprazole Sodium Active Levothyroxine Sodium Active oxyCODONE HCl 5 MG TAKE 1 TABLET BY MOUTH EVERY 4 HOURS Oral; Duration: 5 Days Active HYDROmorphone HCl Ac tive Orthopedic Extra Depth Shoes With Custom Heat Molded Multidensity Innersoles as directed Wear Daily; Duration: as needed 05/02/2019 Not-Taking Anti-Diarrheal Activ e Symbicort Not-Taking Ondansetron HCl Acti ve Physical Therapy . . . 2-3x/week; Duration: 3-4 weeks 02/01/2022 Not-Taking Immunizations Vaccine Route Administration Date Status Comme nts Influenza Unknown 03/25/2024 Administered COVID-19 Moderna Vaccine Unknown 03/29/2021 Administered 1st 08/29/2020 2nd 09/26/2020 Social History Tobacco Use: Social History Observation Description Date Details (start date - stop date) Never Smoker NA - NA Tobacco Use/Smoking Question Answer Notes Are you a: nonsmoker Additional Findings: Tobacco Non-User Current no n-smoker Alcohol Screen Question Answer Notes Did you have a drink containing alcohol in the p ast year? No Points 0 Interpretation Negative Tobacco use other than smoking: Question Answer Notes Are you an other tobacco user? No AUDIT-C (Standard) Question Answer Notes Did you have a drink containing alcohol in the p ast year? No Points 0 Interpretation Negative Problems Problem Type SNOMED Code ICD Code Onset Dates Problem Status W/U Status Risk Notes Problem Bilateral atherosclerosis of arteries of lower limbs (disorder) ([id number] ) Atherosclerosis of [place] artery of both lower extremities, with unspecified presence of clinical manifestation (I70.203) Active confirmed Q7(A), Q8(2B), Q9(1B,2 C) Vital Signs Blood pressure diastolic 80 mm Hg 02/11/2025 Height 7vl32gg in 02/11/2025 Blood pressure systolic 120 mm Hg 02/11/2025 Weight 153 lbs 02/11/2025 BMI 30.9 kg/m2 02/11/2025 Procedures Procedure Date Ordered Date Performed Result Body Sit e 83185-KIBFISD NAIL, 6 OR MORE 06/28/2024 N/A 90812-ONAEBTO NAIL, 6 OR MORE 11/08/2024 N/A 44102-DWBZBCA NAIL, 6 OR MORE 02/11/2025 N/A 73594-PGZA SKIN LESIONS, OVER 4 02/11/2025 N/A Encounters Encounter Location Date Provider Diagnosis [address] [address] 06/28/2024 Alicia Black Tinea unguium B35.1 ; Contusion of left foot, initial encounter S90.32XA ; Pain in right toe(s) M79.674 ; Pain in left toe(s) M79.675 and Pain in left foot M79.[address] [address] 11/08/2024 Alicia Black Pain in left foot M79.672 ; Contusion of left foot, initial encounter S90.32XA ; Pain in right toe(s) M79.674 ; Onychomycosis B35.1 and Pain in left toe(s) M79.[address] [address] 02/11/2025 Alicia Black Pain in right toe(s) M79.674 ; Atherosclerosis of [place] artery of both lower extremities, with unspecified presence of clinical manifestation I70.203 ; Pain in left toe(s) M79.675 and Tinea unguium B35.[address] [address] 05/24/2024 Alicia Black [address] [address] 10/01/2024 Alicia Black [address] [address] 11/06/2024 Alicia Black Assessments Encounter Date Diagnosis (ICD Code) Assessment Notes Treatment Notes Treatment Clinical Notes Section Notes 06/28/2024 Contusion of left foot, initial encounter (ICD-10 - S90.32XA) Patient Educated with: RICE [email or web address].pdf ([email or web address] [email or web address].pdf) 06/28/2024 Tinea unguium (ICD-10 - B35.1) 11/08/2024 Contusion of left foot, initial encounter (ICD-10 - S90.32XA) 11/08/2024 Pain in left foot (ICD-10 - M79.672) 02/11/2025 Pain in right toe(s) (ICD-10 - M79.674) 02/11/2025 Atherosclerosis of [place] artery of both lower extremities, with unspecified presence of clinical manifestation (ICD-10 - I70.203) Q7(A), Q8(2B), Q9(1B,2C) 11/08/2024 Pain in right toe(s) (ICD-10 - M79.674) 02/11/2025 Pain in left toe(s) (ICD-10 - M79.675) 06/28/2024 Pain in right toe(s) (ICD-10 - M79.674) 06/28/2024 Pain in left toe(s) (ICD-10 - M79.675) 11/08/2024 Onychomycosis (ICD-10 - B35.1) 02/11/2025 Tinea unguium (ICD-10 - B35.1) 11/08/2024 Pain in left toe(s) (ICD-10 - M79.675) 06/28/2024 Pain in left foot (ICD-10 - M79.672) Plan Of Treatment Pending Test Test Name Order Date *Uric Acid, Serum 10/14/2022 *CBC With Differential/Platelet 10/15/19 *Sedimentation Rate-Westergren 3 C-Reactive Protein, Quant 10/14/2022 X ray : Foot, left 3V 02/01/2022 X ray : Foot, left 3V 07/10/2019 X ray : Foot, left 3V 08/08/2019 X ray : Foot, left 3V 08/03/2023 X ray : Foot, right 3V 02/01/2022 13369-FOLVMJE NAIL, 6 OR MORE 11/17/2020 94282-LGICGUI NAIL, 6 OR MORE 02/16/2021 35520-RSXRDXD NAIL, 6 OR MORE 05/21/2021 75399-SEOZSQD NAIL, 6 OR MORE 09/03/2021 32613-TAGSWVS NAIL, 6 OR MORE 12/03/2021 21611-KKYGSRK NAIL, 6 OR MORE 11/29/2019 56053-LPDAFWV NAIL, 6 OR MORE 03/03/2020 18109-FACIMVF NAIL, 6 OR MORE 06/02/2020 31615-MFILPZX NAIL, 6 OR MORE 08/25/2020 46222-SIHXJIH NAIL, 6 OR MORE 06/28/2022 12492-IJDCVUM NAIL, 6 OR MORE 04/14/2023 04240-NPZNHFM NAIL, 6 OR MORE 10/14/2022 79578-TVOHBYQ NAIL, 6 OR MORE 01/13/2023 11218-FUPKMKC NAIL, 6 OR MORE 10/31/2023 16707-ATELCZQ NAIL, 6 OR MORE 02/16/2024 70925-MVQFTEZ NAIL, 6 OR MORE 06/28/2024 41088-PRNSNUS NAIL, 6 OR MORE 11/08/2024 78921-MBBUSLC NAIL, 6 OR MORE 08/22/2023 21708-LJYBRUV NAIL, 6 OR MORE 02/11/2025 28988-TDLAERP NAIL, 1-5 11/16/2018 07129-Nlrr Destruction, 1-14 11/16/2018 00015-Rhli Destruction, 1-14 03/07/2017 58712-Sbwd Destruction, -14 11/29/2019 59359-Zuxd Destruction, -14 03/03/2020 98013-Kxwd Destruction, -14 10/05/2018 40371-Mkgc Destruction, -14 11/17/2020 70656-Xteg Destruction, -14 06/02/2020 90603-Ubuv Destruction, -14 08/25/2020 42908-Etcp Destruction, -14 09/03/2021 90793-Nvzh Destruction, -14 12/03/2021 39163-Yyxa Destruction, -14 06/28/2022 31806-Pxeb Destruction, -14 10/14/2022 68047-Utpr Destruction, -14 08/22/2023 78292-Bfnc Destruction, -14 04/14/2023 08524-Ncsp Destruction, -14 01/13/2023 41451-Jvjjkwgr Plate 09/03/2021 39692-Rjpgsctu Plate 02/16/2021 20063-Saowwdaw Plate 11/17/2020 23395- Debride <25 sq cm 06/02/2020 31110-KSVG SKIN LESIONS, OVER 4 02/12/20 12211-Vywl. Subungual Hematoma 28092- Removal of Foreign Body, Subcut 0 10/31/2023 25453-Gzjtsanju, Toes 08/03/2023 X ray : Ankle, right 3V 02/01/2022 Next Appt Details Provider Name:Alicia Oropeza , 05/27/2025 09:30:00 AM, [address] [facility], [place], [address], Insurance Providers Payer Name Payer Address Payer Phone Subscriber Number Group Number Insured Name Patient Relationship to Insured Coverage Start Date Coverage End Date Medicare National Govt [employer] [address] [place] [address] [id number] Shantal Mays Self - patient is the insured [address] [place] [address] [place] [address] [id number] Shantal Mays Self - patient is the insured Medical (General) History Medical History History ICD Code Arthritis Back,Hip,and Knee pain Stomach ulcer Thyroid disorder Warts Measles Mumps Chicken pox Joint implants/screws Transfusions COPD covid-19 Neuropathy G62.9 Plantar wart B07.0 Other hammer toe(s) (acquired), right fo ot M20.41 Other hammer toe(s) (acquired), left linwood t M20.42 PlantarFlexion of metatarsal of left linwood t M21.6X2 Primary osteoarthritis, right ankle and foot M19.071 Primary osteoarthritis, left ankle and f oot M19.072 Idiopathic gout, left ankle and foot M10 .072 Arthritis of joint of lesser toe, left M 19.072 Surgical History Surgery Date(Month/Year) left hip replacement 12/14/16 - 03/09/17 both ankles plates removed 02/28/2019 endoscopy 07/30/19 D &C - Uterus had fluid 01/12/23 back surgery 02/15 Hospitalization History Reason Date(Month/Year)
--- OUTSIDE RECORDS SUMMARY | 2025-05-08 20:03 | XMS_ITS ---
Author Name [facility] Organization Unknown Care Team Organization Name Specialty Phone Email Start Date End Da te [facility] AC 03/13/2025 [facility] Carina Katz Primary Care 12/31/2022 [facility] Ольга Primary Care 06/01/2022 03/12/2024
--- OUTSIDE RECORDS SUMMARY | 2025-05-08 20:03 | XMS_ITS | Clinical Summary ---
Author Organization [facility] Address [address] [place], [place] [id number] Care Team Providers Care Neck Skewer Name Role Phone Ankita Rolon MD Primary Care Provider [phone] Allergies Active Allergy Reactions Criticality Noted Date Comments Levofloxacin Nausea Only,Other (S ee Comments) High 02/15/2022 GI Upset - burning sensation of the stomach (refer to tele enc 02/15/22) Tramadol 10/05/2019 Medications Medication Sig Dispensed Refills Start Date End Date Status Levothyroxine Sodium 112 MCG CAPS Take 112 mcg by mouth daily. 0 Active gabapentin (NEURONTIN) 300 MG capsule Take 300 mg by mouth 2 (two) times a day. 0 Active ondansetron (ZOFRAN-ODT) 4 MG disintegrating tablet Take 4 mg by mouth every 8 (eight) hours as needed for nausea. 0 Active omeprazole (PriLOSEC) 20 MG capsule Take 20 mg by mouth daily. 0 Active budesonide-formoterol (SYMBICORT) 160-4.5 MCG/ACT inhaler Inhale 2 inhalations into the lungs 2 (two) times a day. 0 Active hydrOXYzine (ATARAX) 10 MG tablet Take 10 mg by mouth daily. 0 Active cyanocobalamin (VITAMIN B12) 1000 MCG/ML injection Inject 1,000 mcg into the muscle every 30 (thirty) days. 0 Active Albuterol Sulfate 108 (90 Base) MCG/ACT AEPB Inhale 2 puffs into the lungs 2 (two) times a day as needed. 0 Active clotrimazole-betameth asone (LOTRISONE) cream Apply topically 2 (two) times a day. 0 Active buPROPion (WELLBUTRIN) 100 MG tablet Take 100 mg by mouth 2 (two) times a day. 0 Active Diclofenac Sodium 1 % GEL Apply 10 g topically daily. 150 g 0 10/15/2021 Active ergocalciferol (VITAMIN D2) capsule 39008 units Take 1 capsule (50,000 Units total) by mouth once a week. 4 capsule 2 10/15/2021 Active predniSONE (DELTASONE) 5 mg tablet 0 12/30/2021 Active oxyCODONE (ROXICODONE) 5 MG immediate release tablet Take 1 tablet (5 mg total) by mouth every 8 (eight) hours as needed for pain. 15 tablet 0 01/26/2022 Active levoFLOXacin (LEVAQUIN) 750 MG tablet Take 1 tablet (750 mg total) by mouth daily. 7 tablet 0 02/10/2022 Active amoxicillin-clavulana te (Augmentin) 875-125 MG per tablet Take 1 tablet by mouth 2 (two) times a day. 10 tablet 0 02/15/2022 Active Active Problems Problem Noted Date Diagnosed Date Hemangioma of liver 02/14/2023 JOAO (iron deficiency anemia) 10/18/2022 Arthritis 10/18/2022 Acute thromboembolism of deep veins of left lowe r extremity 04/20/2022 Acute pulmonary embolism 04/20/2022 Vitamin D deficiency 10/15/2021 Primary osteoarthritis involving multiple joints 10/15/2021 Nausea 10/03/2020 Absolute anemia 06/29/2019 History of gastric surgery 06/29/2019 Peptic ulcer disease 06/29/2019 Simple chronic bronchitis 06/29/2019 Immunizations Name Administration Dates Next Due Covid-19 (Moderna 12+) 100mcg/0.5mL dosage 09/26,08/28/2020 Social History Tobacco Use Types Packs/Day Years Used Date Smoking Tobacco: Never Smokeless Tobacco: Never Alcohol Use Standard Drinks/Week Comments No 0 (1 standard drink = 0.6 oz pur e alcohol) Sex and Gender Information Value Date Recorded Sex Assigned at Not on file Gender Identity Not on file Sexual Orientation Not on file Job Start Date Occupation Industry Not on file Not on file Not on file Last Filed Vital Signs Vital Sign Reading Time Taken Comments Blood Pressure 118/83 10/10/2023 9:55 AM EDT Pulse 66 10/10/2023 9:55 AM EDT Temperature 36.2 C (97.1 F) 10/10/2023 9:55 AM EDT Respiratory Rate 18 11/02/2022 1:00 PM EDT Oxygen Saturation 99% 10/10/2023 9:55 AM EDT Inhaled Oxygen Concentration - - Weight 76.9 kg (169 lb 9.6 oz) 10/10/2023 9:55 A M EDT Height 152.4 cm (5') 10/10/2023 9:55 AM EDT Body Mass Index 33.12 10/10/2023 9:55 AM EDT Plan of Treatment Health Maintenance Due Date Last Done Comments Hepatitis C Screening 1950 Depression Screening 1962 BMI Counseling 1968 Preventative Health Evaluation 1968 Colon Cancer Screening (Colonoscopy) 10/25/1995 Breast Cancer Screening (Mammogram) 2000 Fall Risk Assessment 10/25/2015 Osteoporosis Screening (DEXA Scan) 10/25/2015 COVID-19 Vaccine ( season) 2025 06/07/2022, 12/09/2021, 07/05/2021, Additional history exists Influenza Vaccine (#1) 2025 3, 05/30/2022, 05/30/2022, Additional history exists RSV Adult > 60+ Yrs or (1 - 1-dose 75+ series) 2025 DTap / Tdap / Td (3 - Td or Tdap) 01/21/2032 01/20/2022, 08/25/2007 Pneumococcal Vaccine Completed 06/08/2017, 06/08/2016, 06/12/2015, Additional history exists Shingrix-Zoster Vaccine Completed 08/08/2019, 07/09 Hepatitis B Vaccines Aged Out No long er eligible based on patient's age to complete this topic RSV Ped < 20 months Aged Out No longe r eligible based on patient's age to complete this topic Care Teams Neck Skewer Relationship Specialty Start Date End Date Ankita Rolon MD PCP - General Internal Medicine 02/29/20
[2025-05-08 20:42] VITALS: BP 132/88; PULSE 69; RESP 16; TEMP 36.7; O2SAT 97
[2025-05-08] MEDS: Lidocaine 4 % Patch ADH..PATCH 1 PATCH TRANSDERMA (20:42)
[2025-05-08] MEDS: oxyCODONE HCl Immed Release 5 MG TABLET PO (20:42)
--- NOTE | 2025-05-08 20:53 | PC.NURSE ---
reviewed discharge instructions with pt. pt verbalized understanding, no sign of distress, medicated per mar.
[2025-05-08 20:54] VITALS: BP 132/88; PULSE 69; RESP 16; TEMP 36.7; O2SAT 97
== END 2025-05-08 20:55 | disposition home or self-care (01) ==
PROVIDERS: Emergency Provider Student in an Organized Health Care Education/Training Program; PCP Internal Medicine
DX: S70.02XA Contusion of left hip, initial encounter (principal); S70.01XA Contusion of right hip, initial encounter; M25.552 Pain in left hip; M25.551 Pain in right hip; V43.52XA Car driver injured in collision with other type car in traffic accident, initial encounter; Y93.9 Activity, unspecified; Y92.410 Unspecified street and highway as the place of occurrence of the external cause; Y99.8 Other external cause status
CPT/HCPCS: 73521; 99283; 99284

== ENCOUNTER → 2025-05-08 18:09 | Outpatient (BNV) | payer MEDICARE, OTHER, SELFPAY | PROVIDERS: Visit Provider Radiology Diagnostic Radiology | DX: M85.89 Other specified disorders of bone density and structure, multiple sites (principal) | CPT/HCPCS: 73521 ==